=== PATIENT | female | born 1955 | race Caucasian/White ===

== ENCOUNTER → 2016-11-09 | Outpatient (CLI) | payer OTHER ==
[~2016-11-09] VITALS: Ht 157.5 cm; Wt 94.8 kg
[~2016-11-09] MED LIST: /CIPR75TA; /TAMS4CA; ACET30TAB PO; ACET50TA PO; ALLO300T; ATEN50TA2; AUGM875T27 PO; B-12500T2 PO; BABY81CH; BISO10TA PO; BISO10TA6 PO; CALC600T21 PO; CALCTAB52 PO; CALCTAB7 PO; CHILCHW PO; CHOLPOW39 PO; CIPR500T89 PO; GLUC1000; HUMUINJ; INSULANT; KEFL500C; LASI20TA; LEVO50TA5 PO; LIDOCAINE 2% INJ 100 MG/5 ML SDV (FOR ANES.) As Ordered ONE; MAGN400C2 PO; MAGN400T2 PO; METR500T10 PO; MULT1TAB10 PO; MYLI40DR PO; NS 1,000 ML IV ONE; OMEP40CA2 PO; PERC7.5T12 PO; PRED20TA PO; PROPOFOL 500 MG/50 ML VIAL As Ordered ONE; SIMV10TA2 PO; SLOWTAB PO; SYNT50TA; TYLE325T5 PO; VASO5TAB; VITA200038 PO; VITA500T3 PO; VITAMIN D50000 UNT; ZEBE5TAB; ZOCO10TA PO; [UNRECOGNIZED DRUG - OTHER] PO
--- NOTE | 2016-11-09 09:48 | ROOR ---
Patient Name: Flor Pascual Procedure Date: 11/09/2016 9:22 AM Date of : 1955 Age: 61 Room: [facility] Gender: Female Note Status: Finalized Procedure: Colonoscopy Indications: High risk colon cancer surveillance: Personal history of colonic polyps, Last colonoscopy: March 2013 Providers: Jabari VASQUEZ MD Referring MD: Raghavendra Pierce MD Requesting Provider: Medicines: Monitored Anesthesia Care Complications: No immediate complications. Procedure: Pre-Anesthesia Assessment: - The heart rate, respiratory rate, oxygen saturations, blood pressure, adequacy of pulmonary ventilation, and response to care were monitored throughout the procedure. The Colonoscope was introduced through the anus and advanced to the cecum, identified by appendiceal orifice and ileocecal valve. The colonoscopy was performed without difficulty. The patient tolerated the procedure well. The quality of the bowel preparation was good. Findings: The perianal and digital rectal examinations were normal. A diminutive polyp was found in the cecum. The polyp was sessile. The polyp was removed with a cold snare. Resection and retrieval were complete. Small Internal Hemorrhoids. The exam was otherwise without abnormality. (Exam: Complete, Prep: Good or Excellent.) Impression: - One diminutive polyp in the cecum, removed with a cold snare. Resected and retrieved. - Small Internal Hemorrhoids. - The colon examination was otherwise normal. Recommendation: - Repeat colonoscopy in 5 years for surveillance based on personal history of previous adenomatous polyps. Jabari Vasquez MD Jabari VASQUEZ MD 11/09/2016 9:48:01 AM This report has been signed electronically. Number of Addenda: 0 Note Initiated On: 11/09/2016 9:22 AM Estimated Blood Loss: Estimated blood loss: none.
[2016-11-09 10:10] VITALS: BP 124/76
== END | disposition home or self-care (01) ==
LOC: M OPP 08:28
PROVIDERS: ATTEND Internal Medicine Gastroenterology
DX: Z12.11 Encounter for screening for malignant neoplasm of colon (principal); D12.0 Benign neoplasm of cecum; K64.8 Other hemorrhoids; Z86.010 Personal history of colon polyps; I10 Essential (primary) hypertension; E78.5 Hyperlipidemia, unspecified; R12 Heartburn; Z78.0 Asymptomatic menopausal state; G47.30 Sleep apnea, unspecified; Z98.84 Bariatric surgery status; Z88.8 Allergy status to other drugs, medicaments and biological substances; Z88.2 Allergy status to sulfonamides; Z88.1 Allergy status to other antibiotic agents; Z79.899 Other long term (current) drug therapy; Z87.442 Personal history of urinary calculi

== ENCOUNTER 2016-11-12 09:40 | Emergency (ER) | payer OTHER ==
[~2016-11-12] VITALS: Ht 157.5 cm; Wt 90.7 kg
[2016-11-12 09:40] VITALS: BP 177/96
[~2016-11-12 09:40] MED LIST changes: -ACET30TAB PO; -AUGM875T27 PO; -BISO10TA PO; -LIDOCAINE 2% INJ 100 MG/5 ML SDV (FOR ANES.) As Ordered ONE; -MAGN400C2 PO; -NS 1,000 ML IV ONE; -PRED20TA PO; -PROPOFOL 500 MG/50 ML VIAL As Ordered ONE
[2016-11-12] MEDS ORDERED: BISO10TA PO (09:51)
[2016-11-12] MEDS ORDERED: MAGN400C2 PO (09:51)
[2016-11-12] MEDS ORDERED: AUGM875T27 PO (10:31)
[2016-11-12] MEDS ORDERED: PRED20TA PO (10:31)
[2016-11-12] MEDS ORDERED: ACET30TAB PO (10:31)
== END 2016-11-12 10:44 | disposition home or self-care (01) ==
LOC: M ED 10:24
DX: J01.90 Acute sinusitis, unspecified (principal); I10 Essential (primary) hypertension; E66.9 Obesity, unspecified; Z79.899 Other long term (current) drug therapy; Z88.2 Allergy status to sulfonamides; Z88.8 Allergy status to other drugs, medicaments and biological substances

== ENCOUNTER → 2017-01-01 | Outpatient (CLI) | payer OTHER ==
[~2017-01-01] MED LIST changes: +ACET30TAB PO; +AUGM875T28 PO; +BISO10TA PO; -CALC600T21 PO; +CALC600T60 PO; +MAGN400C2 PO; +PRED20TA PO
--- NOTE | 2017-01-01 11:55 | REPMRS ---
Patient History The patient states she had a clinical breast exam in 10/2016. Patient is postmenopausal. No known family history of cancer. Digital Woman Screen Mammo: January 01, 2017 - Exam #: [id number] Bilateral CC and MLO view(s) were taken. Technologist: Reba Garcia Technologist Prior study comparison: November 05, 2015, digital woman screen mammo performed at [facility]. September 15, 2014, digital woman screen mammo performed at [facility]. FINDINGS: There are scattered fibroglandular densities. There has been no change in the appearance of the mammogram from the prior studies. There is a mild amount of residual fibroglandular tissue which is fairly symmetric. There is no interval development of dominant mass, architectural distortion, or clustered microcalcification suggestive of malignancy. ASSESSMENT: BI-RADS/ACR category 1 mammogram. Negative. Recommendation Routine screening mammogram in 1 year (for women over age 40). This mammogram was interpreted with the aid of an FDA-approved computer-aided dectection system. Electronically Signed By: Murtaza Crowe MD 01/01/17 [id number]
== END ==
LOC: M WHC 10:10
PROVIDERS: ATTEND Family Medicine
DX: Z12.31 Encounter for screening mammogram for malignant neoplasm of breast (principal)

== ENCOUNTER → 2017-01-01 | Outpatient (CLI) | payer OTHER ==
--- NOTE | 2017-01-01 09:21 | REP ---
KUB, ONE VIEW: HISTORY: Kidney stone. COMPARISON: 01/03/2016. Calcifications are present overlying the kidneys consistent with nephrolithiasis. Calcifications are present in the pelvis consistent with phleboliths. The intestinal gas pattern is nonspecific. IMPRESSION: Bilateral nephrolithiasis. Signed by Juan Henriquez MD 01/01/2017 09:25 A
== END ==
LOC: M SMT 08:30
PROVIDERS: ATTEND Urology
DX: N20.0 Calculus of kidney (principal)

== ENCOUNTER → 2017-09-11 | Outpatient (REF) | payer OTHER | LOC: M SFHCWAGY 16:15 | DX: N93.9 Abnormal uterine and vaginal bleeding, unspecified (principal); Z12.72 Encounter for screening for malignant neoplasm of vagina ==

== ENCOUNTER → 2018-01-01 | Outpatient (CLI) | payer OTHER | LOC: M SMT 09:26 | DX: N20.0 Calculus of kidney (principal) | CPT/HCPCS: 74018 ==

== ENCOUNTER → 2018-01-02 | Outpatient (CLI) | payer OTHER | LOC: M WHC 10:46 | DX: Z12.31 Encounter for screening mammogram for malignant neoplasm of breast (principal); Z78.0 Asymptomatic menopausal state | CPT/HCPCS: 77067 ==

== ENCOUNTER → 2018-01-03 | Outpatient (REF) | payer OTHER ==
[2018-01-08 18:10] LABS: FERRITIN 7 NG/ML (8-252)
== END ==
LOC: M LAB REF 01-08 17:24
DX: Z98.84 Bariatric surgery status (principal)

== ENCOUNTER → 2019-01-01 | Outpatient (CLI) | payer OTHER ==
[~2019-01-01] MED LIST changes: -/TAMS4CA; +ACET-716 PO; -ACET30TAB PO; -ACET50TA PO; -BISO10TA PO; +BISO10TA13 PO; -BISO10TA6 PO; +BISO10TA7 PO; +FLOM0.4C39; +MAPA500T17 PO
[2019-01-01 17:42] LABS: APPEARANCE, URINE CLEAR (CLEAR); BACTERIA, URINE AUTO 1+ (NEGATIVE); BILIRUBIN, URINE AUTO NEGATIVE (NEGATIVE); BLOOD, URINE BLOOD NEGATIVE (NEGATIVE); COLOR, URINE YELLOW (YELLOW); GLUCOSE, URINE (UA) AUTO NEGATIVE (NEGATIVE); KETONE, URINE AUTO NEGATIVE (NEGATIVE); LEUKOCYTE ESTERASE, URINE AUTO 1+ (NEGATIVE); MUCUS, URINE SMALL (NEGATIVE); NITRITE, URINE AUTO NEGATIVE (NEGATIVE); PROTEIN, URINE AUTO NEGATIVE (NEGATIVE); RBC, URINE AUTO 3 /HPF (0-3); SPECIFIC GRAVITY URINE AUTO 1.014 (1.002-1.035); SQUAMOUS EPITHELIAL CELL UR AU 0 /HPF (0-6); UROBILINOGEN, URINE AUTO 0.2 mg/dL (0.0-2.0); WBC, URINE AUTO 60 /HPF (0-3)
--- NOTE | 2019-01-01 21:54 | REP ---
Clinical: Kidney stone. Comparison: 01/01/2018. Findings: Single supine view of the abdomen and pelvis demonstrates stable degenerative changes to the skeletal structures and innumerable calcifications in the pelvis likely representing phleboliths. Bilateral intrarenal calculi are again noted and essentially unchanged. Conglomerate of stones in the lower pole right kidney and up to approximately 18 mm and conglomerate of stones in the lower pole left kidney up to approximately 15 mm. Impression: Bilateral nephrolithiasis. Electronically Signed by Miguel Malagon MD 01/01/2019 09:46 P
== END ==
LOC: M SMT 14:34
PROVIDERS: ATTEND Nurse Practitioner Family
DX: N20.0 Calculus of kidney (principal); R39.15 Urgency of urination

== ENCOUNTER → 2019-01-23 | Outpatient (CLI) | payer OTHER ==
--- NOTE | 2019-01-23 09:29 | REP ---
BILATERAL SCREENING DIGITAL MAMMOGRAM WITH 3D TOMOSYNTHESIS: There are no palpable abnormalities or other breast complaints. The the patient states she had a clinical breast examination November. The the patient states she performs self-breast examinations two times per year. The Tyrer-Cuzick Score is: 5.3% . Comparisons are 11/05/2015, 01/01/2017 and 01/02/2018. There are scattered areas of fibroglandular density. There is no dominant mass, micro calcific cluster or architectural distortion that would indicate malignancy. There are no additional findings on 3D tomosynthesiss. There is no change from the prior study. Impression: BIRADS/ACR category 1 mammogram. Negative. Recommendation: Routine annual screening mammography. This mammogram was interpreted with the aid of a FDA approved computer-aided detection system. A. Negative mammogram reports should not delay biopsy if a dominant or clinically suspicious mass is present. B. Not all breast cancers are identified by mammography or tomosynthesis. C. Adenosis and dense breasts may obscure an underlying neoplasm. Patient letter M1. Electronically Signed by Murtaza Doll MD 01/23/2019 09:21 A
== END ==
LOC: M WHC 08:02
PROVIDERS: ATTEND Family Medicine
DX: Z12.31 Encounter for screening mammogram for malignant neoplasm of breast (principal)

== ENCOUNTER → 2019-04-03 | Outpatient (REF) | payer OTHER ==
[~2019-04-03] MED LIST changes: +BISO10TA10 PO; -BISO10TA7 PO
[2019-04-03 13:40] LABS: BASO % 0.8 % (0.0-1.0); EOS # 0.2 10^3/uL (0.0-0.5); EOS % 4.1 % (0.0-3.0); HEMATOCRIT 42.2 % (36.0-47.0); LYMPH # 0.9 10^3/uL (1.5-5.0); LYMPH % 18.1 % (24.0-44.0); MEAN CORPUSCULAR HEMOGLOBIN 29.5 pg (27.0-33.0); MEAN CORPUSCULAR HGB CONC 33.2 g/dl (32.0-36.5); MEAN CORPUSCULAR VOLUME 88.8 fl (80.0-96.0); MONO # 0.6 10^3/uL (0.0-0.8); NEUTROPHILS # 3.4 10^3/uL (1.5-8.5); NEUTROPHILS % 65.2 % (36.0-66.0); PLATELET COUNT, AUTOMATED 205 10^3/uL (150-450); RED BLOOD COUNT 4.75 10^6/uL (4.00-5.40); WHITE BLOOD COUNT 5.2 10^3/uL (4.0-10.0)
[2019-04-07 10:46] LABS: D001-IgE D pteronyssinus <0.10 kU/L (Class 0); E001-IgE Cat Epith/Dander < 0.10 kU/L (Class 0); E005-IgE Dog Dander < 0.10 kU/L (Class 0); G002-IgE Bermuda Grass < 0.10 kU/L (Class 0); G008-IgE Kentucky Bluegrass < 0.10 kU/L (Class 0); M001-IgE Penicillium chrysogen < 0.10 kU/L (Class 0); M002 IgE Cladosporium herbaru < 0.10 kU/L (Class 0); M003 IgE Aspergillus fumigatu < 0.10 kU/L (Class 0); M006-IgE Alternaria alternata < 0.10 kU/L (Class 0); T001-IgE Maple/Box Elder < 0.10 kU/L (Class 0); T003-IgE Common Silver Birch < 0.10 kU/L (Class 0); T006-IgE Cedar, Mountain < 0.10 kU/L (Class 0); T007-IgE Oak, White < 0.10 kU/L (Class 0); T008-IgE Elm, American < 0.10 kU/L (Class 0); T015-IgE Ash, White < 0.10 kU/L (Class 0); T041-IgE Hickory, White < 0.10 kU/L (Class 0); T070-IgE White Mulberry < 0.10 kU/L (Class 0); W001-IgE Ragweed, Short < 0.10 kU/L (Class 0); W009-IgE Plantain, English < 0.10 kU/L (Class 0); W014-IgE Pigweed, Rough < 0.10 kU/L (Class 0); W018-IgE Sheep Sorrel < 0.10 kU/L (Class 0)
== END ==
LOC: M LAB REF 13:06
PROVIDERS: ATTEND Internal Medicine Pulmonary Disease
DX: J45.40 Moderate persistent asthma, uncomplicated (principal)

== ENCOUNTER → 2019-04-10 | Outpatient (CLI) | payer OTHER ==
[~2019-04-10] MED LIST changes: +OMEP40CA97 PO
--- NOTE | 2019-04-10 10:27 | REP ---
Two-view chest: 04/10/2019. Indication: Dyspnea. Comparison: 12/11/2014. Findings: Compared to the previous study, the findings are stable. Scarring of the lower lobes is redemonstrated. Cardiomegaly persists. No new pulmonary infiltrates are present. There is no pleural effusion or pneumothorax. Impression: No acute cardiopulmonary process. Stable examination compared to 2014. Bibasilar scarring and cardiomegaly. Electronically Signed by Ronal Cheung DO 04/10/2019 10:18 A
== END ==
LOC: M SMT 08:56
PROVIDERS: ATTEND Internal Medicine Pulmonary Disease
DX: J45.40 Moderate persistent asthma, uncomplicated (principal)

== ENCOUNTER → 2019-04-22 | Outpatient (CLI) | payer OTHER ==
--- NOTE | 2019-04-22 08:15 | PFTRPT ---
Height: 62.00 Inches Weight: 225.00 Lbs BSA: 2.01 Diagnosis: J45.40 DATE OF PROCEDURE: 04/22/2019 ORDERED BY: Anju Bazzi MD Spirometry: Pre and post bronchodilator study of excellent technical quality. Forced vital capacity reduced. FEV1 in proportion. Obstructive index is, therefore, normal. Flow Volume Loop: Expiratory limb of the flow volume loop does suggest a restrictive impairment. No significant bronchodilator response identified. Lung Volumes: Total lung capacity is reduced. Residual volume is in proportion. Diffusing Capacity: Diffusing capacity is reduced but is appropriate for alveolar volume. Hemoglobin: Hemoglobin acceptable at 12.7. Airway Mechanics: Airway resistance mildly elevated with concomitant decrease in airway conductance. IMPRESSION: Suspect predominantly a mild restrictive ventilatory defect. Please correlate clinically. MTDD
== END ==
LOC: M CARPUL 07:23
PROVIDERS: ATTEND Internal Medicine Pulmonary Disease
DX: J45.40 Moderate persistent asthma, uncomplicated (principal)

== ENCOUNTER → 2019-04-29 | Outpatient (CLI) | payer OTHER ==
[~2019-04-29] MED LIST changes: +METHACHOLINE KIT (J7674) INH ONE
--- NOTE | 2019-04-29 10:48 | PFTRPT ---
Height: 62.00 Inches Weight: 225.00 Lbs BSA: 2.01 Diagnosis: J45.40 DATE OF PROCEDURE: 04/29/2019 ORDERED BY: Dr. Anju Bazzi INTERPRETATION: Study of excellent technical quality. Under protocol, methacholine was administered. At the maximal dose of 25 mg or 188.875 CDUs, a 24% decline in the FEV1 was noted. PC of 13.17 does not meet criteria for a positive study. IMPRESSION: Nondiagnostic study. Please correlate clinically. MTDD
== END ==
LOC: M CARPUL 09:32
PROVIDERS: ATTEND Internal Medicine Pulmonary Disease
DX: J45.40 Moderate persistent asthma, uncomplicated (principal)

== ENCOUNTER → 2019-05-16 | Outpatient (CLI) | payer OTHER ==
[~2019-05-16] MED LIST changes: -METHACHOLINE KIT (J7674) INH ONE
--- NOTE | 2019-05-16 17:55 | REP ---
CT chest without contrast: High-resolution study. 1 mm slices. History: Other nonspecific abnormal finding of the lung field. Atelectasis. Possible fibrosis and interstitial lung disease. Shortness of breath. Comparison chest x-ray April 10, 2019. CT findings: There are linear band-like areas of fibrosis and atelectasis bilaterally and fairly extensively in the lower lobes as well as in the left upper lobe and in the right middle lobe. This corresponds with plain radiographic findings of fibro atelectatic change. There are old healed rib fractures on the left and on the right laterally and posterolaterally. There is the there is extensive vascular calcification. There is some focal pericardial calcification. No pericardial effusion is seen. No pleural effusion is seen. No hilar or mediastinal mass or adenopathy is observed. No adrenal lesion is seen. There is a small cyst in the upper pole of the left kidney suspected. Postcholecystectomy clips are visible. There is no evidence of diffuse interstitial lung disease. No endobronchial lesion is seen. There are some air bronchograms in the atelectatic segment in the right lower lobe. These airways appear mildly dilated. Impression: There are coarse areas of fairly extensive fibro atelectatic changes in the lungs bilaterally. There is no evidence of diffuse interstitial lung disease. Cardiomegaly is seen. Some focal pericardial calcification is seen. Electronically Signed by Santosh Duron MD 05/17/2019 12:34 P
== END ==
LOC: M RAD 13:00
PROVIDERS: ATTEND Internal Medicine Pulmonary Disease
DX: R91.8 Other nonspecific abnormal finding of lung field (principal); J98.11 Atelectasis

== ENCOUNTER → 2019-06-30 | Outpatient (CLI) | payer OTHER ==
[~2019-06-30] MED LIST changes: -SIMV10TA2 PO; +SIMV10TA21 PO
[2019-06-30 12:38] LABS: RHEUMATOID FACTOR QUANT < 10.0 IU/ML (<15.0)
[2019-06-30 12:55] LABS: IMMUNOGLOBULIN G 630 MG/DL (681-1648); IMMUNOGLOBULIN M 19.3 MG/DL (40-230)
[2019-07-03 00:06] LABS: ANCA-ATYPICAL <1:20 titer (Neg:<1:20); ANTI SCLERODERMA ANTIBODIES <0.2 AI (0.0-0.9); ANTINUCLEAR ANTIBODIES DIRECT Negative (Negative); CYCLIC CITRULLINATED PEPTIDE 9 units (0-19); CYTOPLASMIC NEUTROP AB ANCA-C <1:20 titer (Neg:<1:20); PERINUCLEAR AB ANCA-P <1:20 titer (Neg:<1:20); SJOGREN'S ANTI SS-A <0.2 AI (0.0-0.9); SJOGREN'S ANTI SS-B <0.2 AI (0.0-0.9)
== END ==
LOC: M PLALAB 09:45
PROVIDERS: ATTEND Internal Medicine Cardiovascular Disease
DX: R06.00 Dyspnea, unspecified (principal); J45.40 Moderate persistent asthma, uncomplicated

== ENCOUNTER → 2019-12-24 | Outpatient (REF) | payer OTHER ==
[~2019-12-24] MED LIST changes: -BISO10TA10 PO; +BISO10TA14 PO; +BISO5TAB14 PO; +CEFU50TA PO; +CETI10CA2 PO; +DOXY-350 PO; +LASI20TA3 PO; +MONT10TA4 PO; +MULTTAB61 PO; +NITR100C2 PO; +SING10TA32 PO; +SLOWTAB2 PO; +TREL1AER PO; +VITA500T40 PO; +ZYRTTAB8 PO
== END ==
LOC: M LAB REF 12:28
PROVIDERS: ATTEND Nurse Practitioner Family
DX: R30.0 Dysuria (principal)

== ENCOUNTER → 2019-12-31 | Outpatient (REF) | payer OTHER ==
[2019-12-31 18:15] LABS: APPEARANCE, URINE CLOUDY (CLEAR); BACTERIA, URINE AUTO 1+ (NEGATIVE); BILIRUBIN, URINE AUTO NEGATIVE (NEGATIVE); BLOOD, URINE BLOOD 1+ (NEGATIVE); COLOR, URINE AMBER (YELLOW); GLUCOSE, URINE (UA) AUTO NEGATIVE (NEGATIVE); KETONE, URINE AUTO NEGATIVE (NEGATIVE); LEUKOCYTE ESTERASE, URINE AUTO 3+ (NEGATIVE); MUCUS, URINE SMALL (NEGATIVE); NITRITE, URINE AUTO NEGATIVE (NEGATIVE); PROTEIN, URINE AUTO 1+ mg/dL (NEGATIVE); RBC, URINE AUTO 13 /HPF (0-3); SPECIFIC GRAVITY URINE AUTO 1.017 (1.002-1.035); SQUAMOUS EPITHELIAL CELL UR AU 1 /HPF (0-6); UROBILINOGEN, URINE AUTO 0.2 mg/dL (0.0-2.0); WBC, URINE AUTO TNTC /HPF (0-3)
== END ==
LOC: M SMT 17:08
PROVIDERS: ATTEND Nurse Practitioner Family
DX: N39.0 Urinary tract infection, site not specified (principal)

== ENCOUNTER 2020-01-02 16:27 | Emergency (ER) | payer OTHER ==
[~2020-01-02] VITALS: Ht 157.5 cm; Wt 98.9 kg
[~2020-01-02 16:27] MED LIST changes: -BISO5TAB14 PO; -CEFU50TA PO; -CETI10CA2 PO; -DOXY-350 PO; -LASI20TA3 PO; -MONT10TA4 PO; -MULTTAB61 PO; -NITR100C2 PO; -SING10TA32 PO; -SLOWTAB2 PO; -TREL1AER PO; -VITA500T40 PO; -ZYRTTAB8 PO
[2020-01-02 17:28] LABS: BASO % 0.2 % (0.0-1.0); EOS # 0.1 10^3/uL (0.0-0.5); EOS % 1.4 % (0.0-3.0); HEMATOCRIT 44.6 % (36.0-47.0); HEMOGLOBIN 14.5 g/dl (12.0-15.5); LYMPH # 0.2 10^3/uL (1.5-5.0); MEAN CORPUSCULAR HEMOGLOBIN 28.6 pg (27.0-33.0); MEAN CORPUSCULAR HGB CONC 32.5 g/dl (32.0-36.5); MONO # 0.2 10^3/uL (0.0-0.8); MONO % 2.3 % (0.0-5.0); NEUTROPHILS # 8.2 10^3/uL (1.5-8.5); NEUTROPHILS % 93.6 % (36.0-66.0); PLATELET COUNT, AUTOMATED 207 10^3/uL (150-450); RED BLOOD COUNT 5.07 10^6/uL (4.00-5.40); WHITE BLOOD COUNT 8.7 10^3/uL (4.0-10.0)
[2020-01-02 17:55] LABS: BILIRUBIN,DIRECT 0.1 MG/DL (0.0-0.2); BILIRUBIN,TOTAL 0.4 MG/DL (0.2-1.0); CALCIUM LEVEL 9.3 MG/DL (8.8-10.2); CREATININE FOR GFR 1.1 MG/DL (0.55-1.30); GLOMERULAR FILTRATION RATE 53.2 (>45); POTASSIUM SERUM 3.8 MEQ/L (3.5-5.1); TOTAL PROTEIN 7.1 GM/DL (6.4-8.2)
[2020-01-02] MEDS ORDERED: IPRATROPIUM 0.5MG/ALBUTEROL 2.5MG INH SOL UD 3ML (DUONEB) NEB ONE (18:00)
[2020-01-02 19:45] VITALS: BP 111/61
--- NOTE | 2020-01-02 21:40 | ECGEPIP ---
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
--- NOTE | 2020-01-03 15:25 | REP ---
AP PORTABLE CHEST: 01/02/2020 COMPARISON: 04/10/2019 CLINICAL HISTORY: Dyspnea, cough. FINDINGS: The lung raza are adequately inflated. There are linear densities in both bases seen previously but superimposed there are patchy infiltrates or atelectasis bilaterally. Some blunting of the CP angles suggesting small effusions may be present. There is left atrial enlargement, and the heart has left ventricular configuration. Some venous hypertension seen without miri edema. Mid and upper lung zones without consolidation. The aorta is mildly tortuous, unchanged. IMPRESSION: 1. Some mild cardiomegaly with left atrial and ventricular enlargement and some venous hypertension. Small effusion suggested. 2. Some underlying fibrosis and linear fibroatelectatic change similar to previous studies but superimposed patchy bibasilar infiltrates or atelectasis. Pneumonia is not excluded. Electronically Signed by Harjinder Wood MD 01/03/2020 06:28 P
== END 2020-01-02 19:58 | disposition home or self-care (01) ==
LOC: M ED 16:27
DX: J45.901 Unspecified asthma with (acute) exacerbation (principal); E11.9 Type 2 diabetes mellitus without complications; I10 Essential (primary) hypertension; E07.9 Disorder of thyroid, unspecified; Z98.84 Bariatric surgery status; Z79.899 Other long term (current) drug therapy; Z88.2 Allergy status to sulfonamides; Z88.1 Allergy status to other antibiotic agents; Z88.8 Allergy status to other drugs, medicaments and biological substances

== ENCOUNTER 2020-01-04 09:25 | Inpatient (IN) | payer OTHER ==
[~2020-01-04] VITALS: Ht 157.5 cm; Wt 99.3 kg
[2020-01-04] MEDS ORDERED: NITR100C2 PO (09:31)
[2020-01-04] MEDS ORDERED: methylPREDNISolone 125MG 2ML VIAL IV ONE (10:00)
[2020-01-04] MEDS: COMBIVENT RESPIMAT 100-20MCG INHALER 4GM INH SCH ×3 (10:04→11:13)
[2020-01-04 11:02] LABS: BASO % 0.3 % (0.0-1.0); EOS # 0.1 10^3/uL (0.0-0.5); EOS % 1.1 % (0.0-3.0); HEMATOCRIT 38.5 % (36.0-47.0); HEMOGLOBIN 12.7 g/dl (12.0-15.5); LYMPH # 0.3 10^3/uL (1.5-5.0); LYMPH % 2.9 % (24.0-44.0); MEAN CORPUSCULAR HEMOGLOBIN 28.9 pg (27.0-33.0); MEAN CORPUSCULAR VOLUME 87.7 fl (80.0-96.0); MONO # 0.5 10^3/uL (0.0-0.8); MONO % 4.6 % (0.0-5.0); NEUTROPHILS # 9.9 10^3/uL (1.5-8.5); NEUTROPHILS % 90.5 % (36.0-66.0); PLATELET COUNT, AUTOMATED 186 10^3/uL (150-450); RED BLOOD COUNT 4.39 10^6/uL (4.00-5.40); WHITE BLOOD COUNT 10.9 10^3/uL (4.0-10.0)
[2020-01-04] MEDS ORDERED: cefTRIAXone SOD 2 GM in D5W MINI-BAG PLUS 50 ML IV ONE (11:15)
[2020-01-04] MEDS ORDERED: NS 1,000 ML IV ONE ×3 (11:15→12:00)
[2020-01-04] MEDS ORDERED: DOXYCYCLINE HYCLATE 100 MG in D5W MINI-BAG PLUS 100 ML IV ONE (11:15)
[2020-01-04] MEDS ORDERED: SING10TA32 PO (11:16)
[2020-01-04] MEDS ORDERED: TREL1AER PO (11:16)
[2020-01-04] MEDS ORDERED: ZYRTTAB8 PO (11:16)
[2020-01-04 11:34] LABS: ALBUMIN 3.5 GM/DL (3.2-5.2); BILIRUBIN,DIRECT 0.2 MG/DL (0.0-0.2); BILIRUBIN,TOTAL 0.6 MG/DL (0.2-1.0); THYROID STIMULATING HORMONE 1.27 uIU/ML (0.358-3.740); THYROXINE (T4) 14.6 UG/DL (4.5-12.0); TOTAL PROTEIN 6.7 GM/DL (6.4-8.2)
[2020-01-04] MEDS ORDERED: VITA500T40 PO (12:15)
[2020-01-04] MEDS ORDERED: MONT10TA4 PO (12:15)
[2020-01-04] MEDS ORDERED: VITA200038 PO (12:15)
[2020-01-04] MEDS ORDERED: MULTTAB61 PO (12:15)
[2020-01-04] MEDS ORDERED: CETI10CA2 PO (12:15)
[2020-01-04] MEDS ORDERED: SLOWTAB2 PO (12:19)
[2020-01-04] MEDS ORDERED: BISO5TAB14 PO (12:24)
[2020-01-04] MEDS: NS 1,000 ML IV SCH ×2 (13:30→22:29)
--- NOTE | 2020-01-04 14:48 | REP ---
AP PORTABLE CHEST: 01/04/2020. COMPARISON: 01/02/2020, 04/10/2019. CLINICAL HISTORY: Dyspnea and cough. FINDINGS: The bibasilar patchy infiltrates or atelectasis superimposed on known fibrosis seen in 2019 now demonstrate increase in those opacities and consolidations. Small effusions are difficult to exclude. Heart size mildly prominent. Left atrial and ventricular enlargement seen and venous hypertension shows further engorgement. I do not see miri edema. Degenerative changes in the spine and a mildly tortuous aorta, stable. IMPRESSION: 1. Increasing bibasilar atelectasis and/or infiltrates superimposed on known fibrosis since the 01/02/2020 prior. 2. Cardiomegaly with pulmonary venous hypertension also increased but still no interstitial pulmonary edema. Electronically Signed by Harjinder Wood MD 01/04/2020 07:04 P
[2020-01-04 14:59] VITALS: BP 143/99
[2020-01-04] MEDS: IPRATROPIUM 0.5MG/ALBUTEROL 2.5MG INH SOL UD 3ML (DUONEB) INH SCH ×3 (17:40→23:09)
--- NOTE | 2020-01-04 18:42 | HPEPDOC ---
General Date of Admission Jan 04, 2020 at 12:57 Date of Service: Jan 04, 2020 Attending Physician: CHIARA ORTEGA MD Chief Complaint The patient is a 64-year-old female admitted with a reason for visit of Pneumonia. Source: Patient, Old records Exam Limitations: No limitations Timing/Duration: Week(s) Severity: Moderate Associated Symptoms: Cough, Fever, Chills, Loss of appetite, Shortness of breath, Other (runny nose) History of Present Illness 64-year-old female with history of asthma and reports onset of fever, cough and runny nose over the past week. She attributed some of it to the recent humidity and heat. She returned today with significant malaise; she is found to have bilateral basilar pneumonia. She has ruled out for COVID-19 by rapid testing. She has had shortness of breath and wheezing. She has been unresponsive to inhalers. She denies any known exposures to anyone who has been ill. She states she has generally been at home due to the pandemic. She has had difficulty with urinary tract infection; urine cultures obtained on December 23 and December 30 are both positive for Escherichia coli. She has been on extended treatment course with Macrodantin. Home Medications Scheduled Bisoprolol Fumarate (Bisoprolol Fumarate) 5 Mg Tablet, 5 MG PO DAILY, (Reported) Calcium Carbonate (Calcium) 600 Mg Tab, 1,200 MG PO DAILY, (Reported) Cetirizine HCl (ZyrTEC) 10 Mg Capsule, 10 MG PO DAILY, (Reported) Cholecalciferol (Vitamin D3) (Vitamin D3) 50 Mcg Tablet, 50 MCG PO DAILY, (Reported) Cyanocobalamin (Vitamin B-12) (Vitamin B-12) 500 Mcg Tablet, 500 MCG PO DAILY, (Reported) Fluticasone/Umeclidin/Vilanter (Trelegy Ellipta 100-62.5-25) 1 Each Blst.w.dev, 1 PUFF PO DAILY, (Reported) Levothyroxine Sodium (Levothyroxine Sodium) 50 Mcg Tab, 50 MCG PO DAILY, (Reported) Magnesium Chloride (Slow-Mag) 71.5 Mg Tablet.dr, 71.5 MG PO DAILY, (Reported) @ NOON Magnesium Oxide (Magnesium) 400 Mg Cap, 800 MG PO BID, (Reported) Montelukast Sodium (Singulair) 10 Mg Tablet, 10 MG PO DAILY, (Reported) Montelukast Sodium (Montelukast Sodium) 10 Mg Tablet, 10 MG PO QHS, (Reported) Multivitamin (Multivitamins) 1 Each Tablet, 2 TAB PO DAILY, (Reported) Nitrofurantoin Monohyd/M-Cryst (Nitrofurantoin Edmunds-Mcr 100 mg) 100 Mg Capsule, 100 MG PO BID, (Reported) Simvastatin (Simvastatin) 10 Mg Tab, 10 MG PO DAILY, (Reported) Allergies Coded Allergies: Sulfa (Sulfonamide Antibiotics) (Verified Allergy, Intermediate, RASH, 04/25/19) streptomycin (Verified Allergy, Intermediate, RASH, 04/25/19) hydrochlorothiazide (Verified Allergy, Unknown, HYPOTENSION, ELEVATED TEMP, 04/25/19) Past Medical History Medical History Past medical history includes nephrolithiasis, btd-wakdqrb-anluqrwlm diabetes mellitus, for which she is not on medication, essential hypertension, hypothyroidism, obstructive sleep apnea for which she makes use of CPAP, psoriasis, recent urinary tract infection with Escherichia coli, history of pneumonia in August 2019. Surgical History Past surgical history includes , cholecystectomy, bilateral carpal tunnel release, hysterectomy, gastric bypass surgery Procedures include ureteral stents and lithotripsy. 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 Physical Examination General Exam: Positive: Alert, No Acute Distress Eye Exam: Positive: PERRLA, Conjunctiva & lids normal, EOMI ENT Exam: Positive: Atraumatic, Mucous membr. moist/pink Neck Exam: Positive: Supple; Negative: JVD, thyromegaly, +2 carotid pulse wo bruit, Lymphadenopathy, Other Chest Exam: Positive: Normal air movement, Other (occasional coarse breath sounds, occasional dry cough) Heart Exam: Positive: Tachycardic, Normal S1, Normal S2 Abdomen Exam: Positive: Normal bowel sounds, Soft, Other (moderate central obesity with body mass index of 40) Extremity Exam: Positive: Normal pulses, Other (mild nontender, joint changes); Negative: Clubbing, Cyanosis, Edema, Tenderness, Swelling Skin Exam: Positive: Nl turgor and temperature, Other skin issue (does have psoriatic lesions to the dorsum and ankles of her feet) Neuro Exam: Positive: Normal Speech, Strength at 5/5 X4 ext, Normal Tone, Sensation Intact, Cranial Nerves 3-12 NL, Reflexes 2+ Psych Exam: Positive: Mood NL, Memory Intact, Oriented x 3 Vital Signs Vital Signs Date Time Temp Pulse Resp B/P (MAP) Pulse Ox O2 Delivery O2 Flow Rate FiO2 01/04/20 14:59 99.0 107 17 143/99 (114) 95 Room Air 01/04/20 13:15 2.0 Laboratory Data Labs 24H Laboratory Tests 2 01/04/20 10:24: POC pH (Misc Panel) 7.444, POC Base Excess (Misc Panel) -2.0, POC Saturated Percent O2 (Misc) 93L, POC pO2 (Misc Panel) 65.0L, POC pCO2 (Misc Panel) 32.7L, POC HCO3 (Misc Panel) 22.4, POC Total CO2 (Misc Panel) 23.0 01/04/20 10:41: POC Total CO2 (Misc Panel) 23.0, POC Glucose (Misc Panel) 143H, POC Sodium (Misc Panel) 142, POC Potassium (Misc Panel) 3.9, POC Chloride (Misc Panel) 106, POC Blood Urea Nitrogen (Misc Panel 21, POC Ionized Calcium (Misc Panel) 4.6, POC Creatinine (Misc Panel) 0.7, POC Hematocrit (Misc Panel) 40.0 01/04/20 10:43: POC Troponin I (Misc) 0.00 01/04/20 10:44: Immature Granulocyte % (Auto) 0.6, Neutrophils (%) (Auto) 90.5H, Lymphocytes (%) (Auto) 2.9L, Monocytes (%) (Auto) 4.6, Eosinophils (%) (Auto) 1.1, Basophils (%) (Auto) 0.3, Neutrophils # (Auto) 9.9H, Lymphocytes # (Auto) 0.3L, Monocytes # (Auto) 0.5, Eosinophils # (Auto) 0.1, Basophils # (Auto) 0.0, Nucleated Red Blood Cells % (auto) 0.0, Total Bilirubin 0.6, Direct Bilirubin 0.2, Aspartate Amino Transf (AST/SGOT) 27, Alanine Aminotransferase (ALT/SGPT) 32, Alkaline Phosphatase 68, LX-Qbg-F-Type Natriuretic Peptide 397H, Total Protein 6.7, Albumin 3.5, Albumin/Globulin Ratio 1.1L, Thyroid Stimulating Hormone (TSH) 1.270, Thyroxine (T4) 14.6H 01/04/20 11:01: POC Lactate (Misc Panel) 2.32*H 01/04/20 16:22: 01/04/20 16:30: Bedside Glucose (Misc Panel) 310H 01/04/20 17:22: Urine Color YELLOW, Urine Appearance CLEAR, Urine pH 6.0, Urine Specific [place] 1.011, Urine Protein NEGATIVE, Urine Glucose (UA) 3+H, Urine Ketones NEGATIVE, Urine Blood NEGATIVE, Urine Nitrite NEGATIVE, Urine Bilirubin NEGATIVE, Urine Urobilinogen 0.2, Urine Leukocyte Esterase TRACEH, Urine WBC (Auto) 4H, Urine RBC (Auto) 2, Urine Hyaline Casts (Auto) 0, Urine Bacteria (Auto) NEGATIVE, Urine Squamous Epithelial Cells 0, Urine Mucus (Auto) SMALL, Urine Sperm (Auto) CBC/BMP Laboratory Tests 01/04/20 10:44 Microbiology Microbiology 01/04/20 Urine Culture, Received Pending 01/04/20 Respiratory Virus Panel (PCR) (DOMENICA) - Final, Complete 01/04/20 Blood Culture, Received Pending RAD Interpretation STUDY: CXR (IMPRESSION:) Assessment/Plan 1. Community-acquired pneumonia--patient has already received initial dosing of ceftriaxone and doxycycline. She is also received bolus dose of prednisone. Blood cultures have been obtained. She will also receive respiratory treatments and supplemental oxygen. Patient did exhibit tachycardia, but no fever or hypotension. Lactic acid was mildly elevated. We'll give IV hydration and recheck/follow. 2. Urinary tract infection--recent organism isolated is Escherichia coli. She has been on protracted course of Macrodantin. We'll recheck urine and if Esche richia coli still present, will adjust therapy. 3. Per-bdvtjwf-ohclosfsd diabetes mellitus--patient states this is essentially resolved since her gastric bypass surgery. We will monitor blood sugars for the next 24 hours. 4. Obstructive sleep apnea--patient can use her home CPAP device if available. Plan / VTE VTE Prophylaxis Ordered?: Yes (Lovenox) Plan IVF: Initiate Diet: Continue Current Activity: Continue Current Medications: Start Antibiotics, Start Steroids Respiratory: Wean Oxygen (where possible) Diagnostics: Repeat Labs in AM, Obtain Cultures Anticipated Discharge: Home CHIARA ORTEGA MD Jan 04, 2020 18:42
--- NOTE | 2020-01-04 19:12 | ECGEPIP ---
[facility] - ED Test Date: 2020-01-04 Pat Name: CHANO GIBSON Department: Room: - Gender: Female [employer]ary: TREVOR : 1955 Requested By: Philippe Nguyen Order Number: [id number] Reading MD: Philippe Nguyen Measurements Intervals [place] Rate: 124 P: 23 [place]: 164 QRS: 16 QRSD: 83 T: 20 QT: 411 QTc: 592 Interpretive Statements SINUS TACHYCARDIA LOW QRS VOLTAGE IN PRECORDIAL LEADS NONSPECIFIC T-WAVE ABNORMALITY ABNORMAL RHYTHM ECG POSSIBLE ANTERIOR WALL MYOCARDIAL INFARCTION - AGE INDETERMINATE PROLONGED QTC CW 01/02/[address] T WAVE CHANGES Electronically Signed on 01-04-2020 19:12:14 EDT by Philippe Nguyen
[2020-01-04] MEDS ORDERED: GLUCAGON INJ 1MG VIAL SC PRN (19:15)
[2020-01-04] MEDS ORDERED: DEXTROSE 50% 50 ML SYRINGE IV PRN (19:15)
[2020-01-04] MEDS ORDERED: GLUCOSE 4GM CHEW TABLET PO PRN (19:15)
[2020-01-04 20:44] LABS: HEMOGLOBIN A1c 6.9 %
[2020-01-04] MEDS: HumaLOG INSULIN (NovoLOG) PER UNIT SC SCH (21:25)
[2020-01-04] MEDS: ACETAMINOPHEN TAB 650MG DOSE (2X325MG) PO PRN (21:26)
[2020-01-04] MEDS: ENOXAPARIN 40MG/0.4ML SYRINGE (J1650 PER 10MG) SC SCH (21:26)
[2020-01-04] MEDS: BENZONATATE 100 MG CAP PO PRN (21:26)
[2020-01-04 22:00] VITALS: BP 112/69
[2020-01-04] MEDS: DOXYCYCLINE HYCLATE 100 MG in D5W MINI-BAG PLUS 100 ML IV SCH (23:36)
[2020-01-04] MEDS: methylPREDNISolone 40MG 1ML VIAL IV SCH (23:36)
[2020-01-05] MEDS: IPRATROPIUM 0.5MG/ALBUTEROL 2.5MG INH SOL UD 3ML (DUONEB) INH SCH ×6 (03:43→23:18)
[2020-01-05 06:00] VITALS: BP 141/71
[2020-01-05] MEDS: LEVOTHYROXINE 50MCG TABLET (0.05MG) PO SCH (06:00)
[2020-01-05 06:35] LABS: HEMATOCRIT 35.3 % (36.0-47.0); HEMOGLOBIN 11.6 g/dl (12.0-15.5); MEAN CORPUSCULAR HGB CONC 32.9 g/dl (32.0-36.5); MEAN CORPUSCULAR VOLUME 88.3 fl (80.0-96.0); PLATELET COUNT, AUTOMATED 180 10^3/uL (150-450); WHITE BLOOD COUNT 4.4 10^3/uL (4.0-10.0)
[2020-01-05 07:12] LABS: BLOOD UREA NITROGEN 17 MG/DL (7-18); CALCIUM LEVEL 8.5 MG/DL (8.8-10.2); CARBON DIOXIDE LEVEL 25 MEQ/L (21-32); CHLORIDE LEVEL 109 MEQ/L (98-107); CREATININE FOR GFR 0.69 MG/DL (0.55-1.30); GLOMERULAR FILTRATION RATE > 60.0 (>45); GLUCOSE, FASTING 262 MG/DL (70-100); SODIUM LEVEL 141 MEQ/L (136-145)
[2020-01-05] MEDS: HumaLOG INSULIN (NovoLOG) PER UNIT SC SCH ×4 (08:36→21:41)
[2020-01-05] MEDS: BENZONATATE 100 MG CAP PO PRN ×2 (08:39→21:41)
[2020-01-05] MEDS: ACETAMINOPHEN TAB 650MG DOSE (2X325MG) PO PRN ×2 (08:39→21:41)
[2020-01-05] MEDS: MAGNESIUM OXIDE 400 MG TAB (MAG-OX) PO SCH ×2 (09:00→21:40)
[2020-01-05] MEDS: CYANOCOBALAMIN 500 MCG TAB PO SCH (09:00)
[2020-01-05] MEDS: bisoproloL fumarate 5 MG TAB PO SCH (09:00)
[2020-01-05] MEDS: SIMVASTATIN 10 MG TAB PO SCH (09:00)
[2020-01-05] MEDS: MULTIVITAMINS/MINERALS THERAP 1 TAB PO SCH (09:00)
[2020-01-05] MEDS: NS 1,000 ML IV SCH ×2 (09:28→21:47)
[2020-01-05] MEDS: DOXYCYCLINE HYCLATE 100 MG in D5W MINI-BAG PLUS 100 ML IV SCH ×2 (11:34→23:41)
[2020-01-05] MEDS: methylPREDNISolone 40MG 1ML VIAL IV SCH ×2 (11:35→23:41)
[2020-01-05] MEDS: cefTRIAXone SOD 1 GM in D5W MINI-BAG PLUS 50 ML IV SCH (13:04)
[2020-01-05 14:00] VITALS: BP 143/77
[2020-01-05] MEDS: BUDESONIDE 0.25 MG/2 ML INHALATION SUSPENSION INH SCH ×2 (15:25→19:51)
[2020-01-05] MEDS: MONTELUKAST 10 MG TAB PO SCH (21:41)
[2020-01-05] MEDS: ENOXAPARIN 40MG/0.4ML SYRINGE (J1650 PER 10MG) SC SCH (21:42)
[2020-01-05 22:00] VITALS: BP 155/80
[2020-01-06] MEDS: IPRATROPIUM 0.5MG/ALBUTEROL 2.5MG INH SOL UD 3ML (DUONEB) INH SCH ×4 (03:23→20:08)
[2020-01-06] MEDS: LEVOTHYROXINE 50MCG TABLET (0.05MG) PO SCH (05:49)
[2020-01-06 06:00] VITALS: BP 152/84
[2020-01-06] MEDS: BUDESONIDE 0.25 MG/2 ML INHALATION SUSPENSION INH SCH ×2 (07:42→20:07)
[2020-01-06] MEDS: MULTIVITAMINS/MINERALS THERAP 1 TAB PO SCH ×2 (09:00→09:07)
[2020-01-06] MEDS ORDERED: MAGNESIUM CHLORIDE 64 MG TABCR (SLO MAG) PO SCH (09:00)
[2020-01-06] MEDS: HumaLOG INSULIN (NovoLOG) PER UNIT SC SCH ×4 (09:06→21:00)
[2020-01-06] MEDS: SIMVASTATIN 10 MG TAB PO SCH (09:07)
[2020-01-06] MEDS: bisoproloL fumarate 5 MG TAB PO SCH (09:07)
[2020-01-06] MEDS: CYANOCOBALAMIN 500 MCG TAB PO SCH (09:07)
[2020-01-06] MEDS: MAGNESIUM OXIDE 400 MG TAB (MAG-OX) PO SCH ×2 (09:07→21:05)
[2020-01-06] MEDS: NS 1,000 ML IV SCH (09:08)
[2020-01-06 11:30] VITALS: O2SAT 93
[2020-01-06] MEDS: DOXYCYCLINE HYCLATE 100 MG in D5W MINI-BAG PLUS 100 ML IV SCH ×2 (12:06→23:35)
[2020-01-06] MEDS: methylPREDNISolone 40MG 1ML VIAL IV SCH (12:06)
[2020-01-06] MEDS: cefTRIAXone SOD 1 GM in D5W MINI-BAG PLUS 50 ML IV SCH (12:49)
[2020-01-06] MEDS: ACETAMINOPHEN TAB 650MG DOSE (2X325MG) PO PRN ×2 (12:50→21:05)
[2020-01-06 14:00] VITALS: BP 139/66
--- NOTE | 2020-01-06 14:49 | IPNPDOC ---
Date Seen The patient was seen on 01/06/20. Progress Note SUBJECTIVE: Blood pressure systolic 150's mmHg, IV fluids stopped. She was 80% on room air on 01/05/2020; however, this morning at rest she was 93% on room air. PT/OT ordered and the patient is encouraged to continue to use her incentive spirometer. She denies increased shortness of breath from admission, chest pain, nausea, vomiting, fevers or chills. OBJECTIVE: VITAL SIGNS: Please see below PHYSICAL EXAMINATION: CONSTITUTIONAL: No acute distress, resting comfortably, AAO x 3 EYES: PERRLA, EOM intact, corrective lenses in place HENT, MOUTH: Normocephalic, atraumatic, moist mucous membranes NECK: SUPPLE, no JVD, no lymphadenopathy, no carotid bruit CV: Regular rate and rhythm, S1S2 normal, no murmurs/rubs/gallops RESPIRATORY: Clear to auscultation bilaterally, no rales/rhonchi/wheezes GI: BS positive in 4 quadrants, soft, nontender, nondistended, no rebound or guarding, no organomegaly : Deferred MUSCULOSKELETAL: Normal ROM. No cyanosis, clubbing, swelling, joint deformity, extremity edema INTEGUMENTARY: Intact, no rashes, no lesions, no erythema NEUROLOGIC: Cranial Nerves II-XII are intact, no focal deficits PSYCHIATRIC: Mood and affect are normal CURRENT MEDICATIONS: Please see below LABORATORY DATA: Please see below IMAGING: No new imaging ASSESSMENT: 64 y/o F with PMH of hypertension, hypothyroidism, diabetes mellitus, TERESA admitted for treatment of recurrent community acquired pneumonia. PLAN: 1. Community-acquired pneumonia -WBC wnl 01/05/20, afebrile overnight. SOB with activity. Hx of prior pneumonia in 08/2019 -Currently 93% on RA -C/w acapella, ceftriaxone and doxycycline (Day 2), duoneb ATC, albuterol PRN -Stopped methylprednisolone as there is currently no need to continue -F/u daily CBC, sputum cx. -Consider walking desaturation test 01/07/20 to evaluate need of O2 with ambulation 2. HTN. -BP 152/84, stopped IVFs. -C/w home BB 3. Hypothyroidism -C/w levothyroxine 4. DM type II -Likely uncontrolled due to steroids- stopped today -Blood sugar uncontrolled ranging 230-282 -Added levemir 8 U SC QAM, first dose today -C/w ISS, AC/HS blood sugar checks, consistent carb diet. 5. TERESA -Can use home CPAP 6. Asthma -Not currently in exacerbation -Stopped steroids. -C/w duoneb ATC, albuterol PRN, pulmicort BID 7. DVT px. -Enoxaparin DISPOSITION: Currently admitted under inpatient. Plan is discharge home when medically improved. PT/OT ordered today. VS, I&O, 24H, Fishbone Vital Signs/I&O Vital Signs Date Time Temp Pulse Resp B/P (MAP) Pulse Ox O2 Delivery O2 Flow Rate FiO2 01/06/20 11:30 93 Room Air 01/06/20 09:45 2.0 01/06/20 09:07 63 152/84 01/06/20 06:00 98.4 18 I&O- Last 24 Hours up to 6 AM 01/06/20 06:00 Intake Total 1730 ml Output Total 1150 ml Balance 580 ml Laboratory Data 24H LABS Laboratory Tests 2 01/05/20 16:31: Bedside Glucose (Misc Panel) 282H 01/05/20 21:04: Bedside Glucose (Misc Panel) 266H 01/06/20 05:50: Bedside Glucose (Misc Panel) 240H 01/06/20 11:50: Bedside Glucose (Misc Panel) 238H Microbiology Microbiology 01/04/20 Urine Culture - Final, Complete 01/04/20 Respiratory Virus Panel (PCR) (DOMENICA) - Final, Complete 01/04/20 Blood Culture - Preliminary, Resulted No Growth after 48 hours. All Specime... Current Medications Current Medications Medications (Trade) Dose Ordered Sig/Mary Route PRN Reason Start Time Stop Time Status Last Admin Dose Admin Acetaminophen (Tylenol Tab) 650 mg Q6HP PRN PO PAIN OR FEVER 01/04/20 13:00 01/06/20 12:50 Albuterol/ Ipratropium (Combivent Respimat 100-20mcg) 4 puff Q20M INH 01/04/20 10:00 01/04/20 10:41 DC 01/04/20 11:13 Albuterol/ Ipratropium (Duoneb (Ipr 0.5mg/Alb 2.5mg)) 3 ml RQ4H INH 01/04/20 16:00 01/06/20 11:42 Benzonatate (Tessalon Perles) 100 mg TIDP PRN PO COUGH 01/04/20 18:45 01/05/20 21:41 Bisoprolol Fumarate (Zebeta) 5 mg DAILY PO 01/05/20 09:00 01/06/20 09:07 Budesonide (Pulmicort) 0.25 mg RBID INH 01/05/20 08:00 01/06/20 07:42 Ceftriaxone Sodium 1 gm/ Dextrose 50 ml @ 100 mls/hr Q24H IV 01/05/20 13:00 01/06/20 12:49 Cyanocobalamin (Vitamin B12) 500 mcg DAILY PO 01/05/20 09:00 01/06/20 09:07 Dextrose (Dextrose 50%) 25 ml ASDIRECTED PRN IV SEE LABEL COMMENTS 01/04/20 19:15 Doxycycline Hyclate 100 mg/ Dextrose 100 ml @ 100 mls/hr Q12H IV 01/05/20 00:00 01/06/20 12:06 Enoxaparin Sodium (Lovenox) 40 mg DAILY@2100 SC 01/04/20 21:00 01/05/20 21:42 Glucagon (Glucagon) 1 mg ASDIRECTED PRN SC SEE LABEL COMMENTS 01/04/20 19:15 Glucose (Glucose) 16 GM ASDIRECTED PRN PO SEE LABEL COMMENTS 01/04/20 19:15 Home Med (Med Rec Complete!) ASDIRECTED XX 01/04/20 12:30 01/04/20 12:34 DC Insulin Human Lispro (HumaLOG INSULIN) See Protocol Table AC SC 01/05/20 07:30 01/06/20 12:50 Insulin Human Lispro (HumaLOG INSULIN) See Protocol Table QHS SC 01/04/20 21:00 01/05/20 21:41 Levothyroxine Sodium (Synthroid) 50 mcg DAILY@0600 PO 01/05/20 06:00 01/06/20 05:49 Magnesium Chloride (Slow-Mag) 71.5 mg DAILY PO 01/06/20 09:00 01/05/20 13:26 DC Magnesium Oxide (Mag-Ox) 800 mg BID PO 01/05/20 09:00 01/06/20 09:07 Methylprednisolone (SOLU medrol) 60 mg Q12H IV 01/04/20 23:00 01/06/20 12:06 Montelukast Sodium (Singulair) 10 mg QHS PO 01/05/20 21:00 01/05/20 21:41 Multivitamins (Theragram-M) 1 tab DAILY PO 01/05/20 09:00 Simvastatin (Zocor) 10 mg DAILY PO 01/05/20 09:00 01/06/20 09:07 Sodium Chloride 1,000 ml @ 100 mls/hr Q10H IV 01/04/20 13:00 01/06/20 14:48 DC 01/06/20 09:08 Allergies Coded Allergies: Sulfa (Sulfonamide Antibiotics) (Verified Allergy, Intermediate, RASH, 04/25/19) streptomycin (Verified Allergy, Intermediate, RASH, 04/25/19) hydrochlorothiazide (Verified Allergy, Unknown, HYPOTENSION, ELEVATED TEMP, 04/25/19) Odilia Schilling MD Jan 06, 2020 14:49
[2020-01-06] MEDS ORDERED: ALBUTEROL SULFATE 2.5 MG/0.5 ML INH NEB SOLN NEB PRN (15:00)
[2020-01-06] MEDS ORDERED: LEVEMIR (INSULIN DETEMIR) 1 UNITS/0.01ML SC ONE (15:00)
[2020-01-06] MEDS: MONTELUKAST 10 MG TAB PO SCH (21:04)
[2020-01-06] MEDS: ENOXAPARIN 40MG/0.4ML SYRINGE (J1650 PER 10MG) SC SCH (21:04)
[2020-01-06 22:00] VITALS: BP 158/84
[2020-01-07] MEDS: IPRATROPIUM 0.5MG/ALBUTEROL 2.5MG INH SOL UD 3ML (DUONEB) INH SCH ×4 (01:40→19:30)
[2020-01-07] MEDS: LEVOTHYROXINE 50MCG TABLET (0.05MG) PO SCH (05:53)
[2020-01-07 06:00] VITALS: BP 157/85
[2020-01-07 06:41] LABS: HEMATOCRIT 37.6 % (36.0-47.0); HEMOGLOBIN 12.3 g/dl (12.0-15.5); MEAN CORPUSCULAR HEMOGLOBIN 28.6 pg (27.0-33.0); MEAN CORPUSCULAR HGB CONC 32.7 g/dl (32.0-36.5); MEAN CORPUSCULAR VOLUME 87.4 fl (80.0-96.0); PLATELET COUNT, AUTOMATED 181 10^3/uL (150-450); WHITE BLOOD COUNT 6.3 10^3/uL (4.0-10.0)
[2020-01-07 07:07] LABS: BLOOD UREA NITROGEN 16 MG/DL (7-18); CREATININE FOR GFR 0.85 MG/DL (0.55-1.30); GLUCOSE, FASTING 151 MG/DL (70-100)
[2020-01-07 07:08] LABS: ALBUMIN 3.2 GM/DL (3.2-5.2); ALT/SGPT 35 U/L (12-78); BILIRUBIN,TOTAL 0.3 MG/DL (0.2-1.0); CARBON DIOXIDE LEVEL 26 MEQ/L (21-32); CHLORIDE LEVEL 109 MEQ/L (98-107); GLOMERULAR FILTRATION RATE > 60.0 (>45); POTASSIUM SERUM 3.6 MEQ/L (3.5-5.1); SODIUM LEVEL 143 MEQ/L (136-145); TOTAL PROTEIN 6.4 GM/DL (6.4-8.2)
[2020-01-07] MEDS: BUDESONIDE 0.25 MG/2 ML INHALATION SUSPENSION INH SCH ×2 (08:07→19:30)
[2020-01-07] MEDS: MULTIVITAMINS/MINERALS THERAP 1 TAB PO SCH (08:56)
[2020-01-07] MEDS ORDERED: LEVEMIR (INSULIN DETEMIR) 1 UNITS/0.01ML SC SCH (09:00)
[2020-01-07] MEDS: MAGNESIUM OXIDE 400 MG TAB (MAG-OX) PO SCH ×2 (09:07→20:55)
[2020-01-07] MEDS: HumaLOG INSULIN (NovoLOG) PER UNIT SC SCH ×4 (09:07→20:47)
[2020-01-07] MEDS: LEVEMIR (INSULIN DETEMIR) 1 UNITS/0.01ML SC SCH (09:07)
[2020-01-07] MEDS: bisoproloL fumarate 5 MG TAB PO SCH (09:10)
[2020-01-07] MEDS: CYANOCOBALAMIN 500 MCG TAB PO SCH (09:11)
[2020-01-07] MEDS: SIMVASTATIN 10 MG TAB PO SCH (09:11)
[2020-01-07] MEDS: ACETAMINOPHEN TAB 650MG DOSE (2X325MG) PO PRN ×2 (09:12→20:56)
[2020-01-07] MEDS: DOXYCYCLINE HYCLATE 100 MG in D5W MINI-BAG PLUS 100 ML IV SCH (12:31)
[2020-01-07 14:00] VITALS: BP 148/79
[2020-01-07] MEDS: cefTRIAXone SOD 1 GM in D5W MINI-BAG PLUS 50 ML IV SCH (14:32)
[2020-01-07 17:32] LABS: BODY FLUID CULTURE Not indicated. (.); LEGIONELLA ANTIGEN URINE Negative (Negative); ORGANISM ID Not indicated. (.); SPECIMEN SOURCE Urine (.); URINE STREP PNEUMONIAE ANTIGEN Negative (Negative)
[2020-01-07] MEDS ORDERED: FUROSEMIDE 20MG/2ML VIAL (J1940) IV ONE (18:45)
--- NOTE | 2020-01-07 18:49 | IPNPDOC ---
Date Seen The patient was seen on 01/07/20. Progress Note SUBJECTIVE: Blood pressure systolic 150's-160 mmHg, IV fluids stopped 01/06/20. 88-92% on RA at rest, dropped to 86-87% on RA with ambulation. She feels as though she is slowly improving and I agree. She denies increased shortness of breath from admission, chest pain, nausea, vomiting, fevers or chills. OBJECTIVE: VITAL SIGNS: Please see below PHYSICAL EXAMINATION: CONSTITUTIONAL: No acute distress, resting comfortably, AAO x 3 EYES: PERRLA, EOM intact, corrective lenses in place HENT, MOUTH: Normocephalic, atraumatic, moist mucous membranes NECK: SUPPLE, no JVD, no lymphadenopathy, no carotid bruit CV: Regular rate and rhythm, S1S2 normal, no murmurs/rubs/gallops RESPIRATORY: Clear to auscultation bilaterally, no rales/rhonchi/wheezes GI: BS positive in 4 quadrants, soft, nontender, nondistended, no rebound or guarding, no organomegaly : Deferred MUSCULOSKELETAL: Normal ROM. No cyanosis, clubbing, swelling, joint deformity, extremity edema INTEGUMENTARY: Intact, no rashes, no lesions, no erythema NEUROLOGIC: Cranial Nerves II-XII are intact, no focal deficits PSYCHIATRIC: Mood and affect are normal CURRENT MEDICATIONS: Please see below LABORATORY DATA: Please see below IMAGING: No new imaging ASSESSMENT: 64 y/o F with PMH of hypertension, hypothyroidism, diabetes mellitus, TERESA admitted for treatment of recurrent community acquired pneumonia. PLAN: 1. Community-acquired pneumonia - 88-92% on RA at rest, dropped to 86-87% on RA with ambulation. Not previously on home O2 -WBC wnl, afebrile overnight. Hx of prior pneumonia in 08/2019 -C/w acapella, ceftriaxone and doxycycline (Day 3), duoneb ATC, albuterol PRN -F/u daily CBC, sputum cx unable to be provided 2. HTN. -BP 152/84, stopped IVFs. -Will give one time dose lasix 40 mg IV -C/w home BB 3. DM type II -HbA1c 6.9, Blood sugar uncontrolled ranging 250 -Uncontrolled due to steroids and active infection combined. Steroids stopped 01/06/20 -Increased levemir to 12 U SC QAM, first dose today -C/w ISS, AC/HS blood sugar checks, consistent carb diet. 4. Hypothyroidism -C/w levothyroxine 5. TERESA -Can use home CPAP 6. Asthma -Not currently in exacerbation -Stopped steroids. -C/w duoneb ATC, albuterol PRN, pulmicort BID 7. DVT px. -Enoxaparin DISPOSITION: Currently admitted under inpatient. Plan is discharge home when medically improved. VS, I&O, 24H, Fishbone Vital Signs/I&O Vital Signs Date Time Temp Pulse Resp B/P (MAP) Pulse Ox O2 Delivery O2 Flow Rate FiO2 01/07/20 15:58 92 Room Air 01/07/20 14:00 97.5 107 18 148/79 (102) 01/07/20 06:00 2.0 I&O- Last 24 Hours up to 6 AM 01/07/20 06:00 Intake Total 2470 ml Output Total 2900 ml Balance -430 ml Laboratory Data 24H LABS Laboratory Tests 2 01/06/20 19:43: Bedside Glucose (Misc Panel) 243H 01/07/20 06:11: Nucleated Red Blood Cells % (auto) 0.0, Anion Gap 8, Glomerular Filtration Rate > 60.0, Calcium Level 9.0, Total Bilirubin 0.3, Aspartate Amino Transf (AST/SGOT) 21, Alanine Aminotransferase (ALT/SGPT) 35, Alkaline Phosphatase 59, Total Protein 6.4, Albumin 3.2, Albumin/Globulin Ratio 1.0L 01/07/20 11:19: Bedside Glucose (Misc Panel) 143H 01/07/20 16:30: Bedside Glucose (Misc Panel) 121H CBC/BMP Laboratory Tests 01/07/20 06:11 Microbiology Microbiology 01/04/20 Urine Culture - Final, Complete 01/04/20 Respiratory Virus Panel (PCR) (DOMENICA) - Final, Complete 01/04/20 Blood Culture - Preliminary, Resulted No Growth after 72 hours. All specime... Current Medications Current Medications Medications (Trade) Dose Ordered Sig/Mary Route PRN Reason Start Time Stop Time Status Last Admin Dose Admin Acetaminophen (Tylenol Tab) 650 mg Q6HP PRN PO PAIN OR FEVER 01/04/20 13:00 01/07/20 09:12 Albuterol Sulfate (Proventil Neb) 2.5 mg Q2HP PRN NEB SOB/WHEEZING 01/06/20 15:00 Albuterol/ Ipratropium (Combivent Respimat 100-20mcg) 4 puff Q20M INH 01/04/20 10:00 01/04/20 10:41 DC 01/04/20 11:13 Albuterol/ Ipratropium (Duoneb (Ipr 0.5mg/Alb 2.5mg)) 3 ml RQ4H INH 01/04/20 16:00 01/06/20 15:03 DC 01/06/20 11:42 Albuterol/ Ipratropium (Duoneb (Ipr 0.5mg/Alb 2.5mg)) 3 ml RQ6H INH 01/06/20 20:00 01/07/20 14:02 Benzonatate (Tessalon Perles) 100 mg TIDP PRN PO COUGH 01/04/20 18:45 01/05/20 21:41 Bisoprolol Fumarate (Zebeta) 5 mg DAILY PO 01/05/20 09:00 01/07/20 09:10 Budesonide (Pulmicort) 0.25 mg RBID INH 01/05/20 08:00 01/07/20 08:07 Ceftriaxone Sodium 1 gm/ Dextrose 50 ml @ 100 mls/hr Q24H IV 01/05/20 13:00 01/07/20 14:32 Cyanocobalamin (Vitamin B12) 500 mcg DAILY PO 01/05/20 09:00 01/07/20 09:11 Dextrose (Dextrose 50%) 25 ml ASDIRECTED PRN IV SEE LABEL COMMENTS 01/04/20 19:15 Doxycycline Hyclate 100 mg/ Dextrose 100 ml @ 100 mls/hr Q12H IV 01/05/20 00:00 01/07/20 12:31 Enoxaparin Sodium (Lovenox) 40 mg DAILY@2100 SC 01/04/20 21:00 01/06/20 21:04 Glucagon (Glucagon) 1 mg ASDIRECTED PRN SC SEE LABEL COMMENTS 01/04/20 19:15 Glucose (Glucose) 16 GM ASDIRECTED PRN PO SEE LABEL COMMENTS 01/04/20 19:15 Home Med (Med Rec Complete!) ASDIRECTED XX 01/04/20 12:30 01/04/20 12:34 DC Insulin Detemir (Levemir Insulin) 8 units QAM SC 01/07/20 09:00 01/07/20 08:46 DC Insulin Detemir (Levemir Insulin) 12 units QAM SC 01/07/20 09:00 01/07/20 09:07 Insulin Human Lispro (HumaLOG INSULIN) See Protocol Table AC SC 01/05/20 07:30 01/07/20 17:51 Insulin Human Lispro (HumaLOG INSULIN) See Protocol Table QHS SC 01/04/20 21:00 01/05/20 21:41 Levothyroxine Sodium (Synthroid) 50 mcg DAILY@0600 PO 01/05/20 06:00 01/07/20 05:53 Magnesium Chloride (Slow-Mag) 71.5 mg DAILY PO 01/06/20 09:00 01/05/20 13:26 DC Magnesium Oxide (Mag-Ox) 800 mg BID PO 01/05/20 09:00 01/07/20 09:07 Methylprednisolone (SOLU medrol) 60 mg Q12H IV 01/04/20 23:00 01/06/20 14:56 DC 01/06/20 12:06 Montelukast Sodium (Singulair) 10 mg QHS PO 01/05/20 21:00 01/06/20 21:04 Multivitamins (Theragram-M) 1 tab DAILY PO 01/05/20 09:00 Simvastatin (Zocor) 10 mg DAILY PO 01/05/20 09:00 01/07/20 09:11 Sodium Chloride 1,000 ml @ 100 mls/hr Q10H IV 01/04/20 13:00 01/06/20 14:48 DC 01/06/20 09:08 Allergies Coded Allergies: Sulfa (Sulfonamide Antibiotics) (Verified Allergy, Intermediate, RASH, 04/25/19) streptomycin (Verified Allergy, Intermediate, RASH, 04/25/19) hydrochlorothiazide (Verified Allergy, Unknown, HYPOTENSION, ELEVATED TEMP, 04/25/19) Odilia Schilling MD Jan 07, 2020 18:49
[2020-01-07] MEDS ORDERED: FUROSEMIDE 40MG/4ML VIAL (J1940) IV ONE (19:00)
[2020-01-07] MEDS: ENOXAPARIN 40MG/0.4ML SYRINGE (J1650 PER 10MG) SC SCH (20:54)
[2020-01-07] MEDS: MONTELUKAST 10 MG TAB PO SCH (20:54)
[2020-01-07 22:00] VITALS: BP 143/88
[2020-01-08] MEDS: DOXYCYCLINE HYCLATE 100 MG in D5W MINI-BAG PLUS 100 ML IV SCH ×3 (01:16→23:40)
[2020-01-08] MEDS: IPRATROPIUM 0.5MG/ALBUTEROL 2.5MG INH SOL UD 3ML (DUONEB) INH SCH ×4 (01:25→19:53)
[2020-01-08] MEDS: LEVOTHYROXINE 50MCG TABLET (0.05MG) PO SCH (05:30)
[2020-01-08 06:00] VITALS: BP 124/65
[2020-01-08 06:35] LABS: ALBUMIN 3.2 GM/DL (3.2-5.2); ALT/SGPT 64 U/L (12-78); BILIRUBIN,TOTAL 0.4 MG/DL (0.2-1.0); BLOOD UREA NITROGEN 17 MG/DL (7-18); CALCIUM LEVEL 8.8 MG/DL (8.8-10.2); CARBON DIOXIDE LEVEL 29 MEQ/L (21-32); CHLORIDE LEVEL 106 MEQ/L (98-107); CREATININE FOR GFR 0.84 MG/DL (0.55-1.30); GLOMERULAR FILTRATION RATE > 60.0 (>45); GLUCOSE, FASTING 102 MG/DL (70-100); POTASSIUM SERUM 3.3 MEQ/L (3.5-5.1); SODIUM LEVEL 144 MEQ/L (136-145); TOTAL PROTEIN 6.1 GM/DL (6.4-8.2)
[2020-01-08] MEDS: HumaLOG INSULIN (NovoLOG) PER UNIT SC SCH ×4 (07:30→20:37)
[2020-01-08] MEDS: BUDESONIDE 0.25 MG/2 ML INHALATION SUSPENSION INH SCH ×2 (07:43→19:52)
[2020-01-08] MEDS: MULTIVITAMINS/MINERALS THERAP 1 TAB PO SCH (09:00)
[2020-01-08] MEDS: CYANOCOBALAMIN 500 MCG TAB PO SCH (09:36)
[2020-01-08] MEDS: MAGNESIUM OXIDE 400 MG TAB (MAG-OX) PO SCH ×2 (09:37→20:43)
[2020-01-08] MEDS: SIMVASTATIN 10 MG TAB PO SCH (09:38)
[2020-01-08] MEDS: POTASSIUM CHLORIDE 10 MEQ SR TABLET PO SCH (09:38)
[2020-01-08] MEDS: bisoproloL fumarate 5 MG TAB PO SCH (09:39)
[2020-01-08] MEDS: LEVEMIR (INSULIN DETEMIR) 1 UNITS/0.01ML SC SCH (09:45)
[2020-01-08] MEDS: cefTRIAXone SOD 1 GM in D5W MINI-BAG PLUS 50 ML IV SCH (13:47)
[2020-01-08 14:00] VITALS: BP 145/65
--- NOTE | 2020-01-08 16:52 | IPNPDOC ---
Date Seen The patient was seen on 01/08/20. Progress Note SUBJECTIVE: Neg fluid balance, BP improved and diuresed nicely over past 24 hours. The patient is 95% on room air with resting however drops to 84% with ambulation on room air. She is still requiring 2 L nasal cannula with ambulation. Potassium was low at 3.3 and 30 mEq of potassium chloride supplementation. She feels frustrated and was tearful at times during our meeting this morning. She denies increased shortness of breath from admission, chest pain, nausea, vomiting, fevers or chills. OBJECTIVE: VITAL SIGNS: Please see below PHYSICAL EXAMINATION: CONSTITUTIONAL: No acute distress, sitting up at bedside chair comfortably, AAO x 3 EYES: PERRLA, EOM intact, corrective lenses in place HENT, MOUTH: Normocephalic, atraumatic, moist mucous membranes NECK: SUPPLE, no JVD, no lymphadenopathy, no carotid bruit CV: Regular rate and rhythm, S1S2 normal, no murmurs/rubs/gallops RESPIRATORY: Clear to auscultation bilaterally, no rales/rhonchi/wheezes GI: BS positive in 4 quadrants, soft, nontender, nondistended, no rebound or guarding, no organomegaly : Deferred MUSCULOSKELETAL: Normal ROM. No cyanosis, clubbing, swelling, joint deformity, extremity edema INTEGUMENTARY: Intact, no rashes, no lesions, no erythema CURRENT MEDICATIONS: Please see below LABORATORY DATA: Please see below IMAGING: No new imaging ASSESSMENT: 64 y/o F with PMH of hypertension, hypothyroidism, diabetes mellitus, TERESA admitted for treatment of recurrent community acquired pneumonia. PLAN: 1. Community-acquired pneumonia. Hx of prior pneumonia in 08/2019 - 95% on room air with resting, drops to 84% with ambulation on room air. Not previously on home O2 -WBC wnl, afebrile overnight. -Discussed walking desaturation test to be done early AM on 01/09/20. Based on those results, would likely determine if patient could be discharged home with home O2. As I believe this will take some time to improve, she would benefit from home O2 services if still hypoxic on exam. -Sputum cx obtained evening of 01/07/20, good sample. F/u results -C/w acapella, ceftriaxone and doxycycline (Day 4), duoneb ATC, albuterol PRN -F/u daily CBC 2. HTN. -BP improved with lasix. -Neg fluid balance -C/w home BB 3. DM type II -HbA1c 6.9, Blood sugar much improved. -Uncontrolled due to steroids and active infection combined. Steroids stopped 01/06/20 -C/w levemir, ISS, AC/HS blood sugar checks, consistent carb diet. 4.Hypokalemia likely 2/2 to diuresis -Potassium 3.3, supplemented 30 mEq -F/u AM labs 5. Hypothyroidism -C/w levothyroxine 6. TERESA -Can use home CPAP 7. Asthma -Not currently in exacerbation -Stopped steroids. -C/w duoneb ATC, albuterol PRN, pulmicort BID 8. DVT px. -Enoxaparin DISPOSITION: Currently admitted under inpatient. Plan is discharge home when medically improved, hopefully in next 48 hrs . VS, I&O, 24H, Fishbone Vital Signs/I&O Vital Signs Date Time Temp Pulse Resp B/P (MAP) Pulse Ox O2 Delivery O2 Flow Rate FiO2 01/08/20 14:00 98.7 81 18 145/65 (91) 94 Room Air 01/08/20 09:00 2.0 I&O- Last 24 Hours up to 6 AM 01/08/20 06:00 Intake Total 2520 ml Output Total 7100 ml Balance -4580 ml Laboratory Data 24H LABS Laboratory Tests 2 01/07/20 20:00: Bedside Glucose (Misc Panel) 117H 01/08/20 05:42: Anion Gap 9, Glomerular Filtration Rate > 60.0, Calcium Level 8.8, Total Bilirubin 0.4, Aspartate Amino Transf (AST/SGOT) 46H, Alanine Aminotransferase (ALT/SGPT) 64, Alkaline Phosphatase 60, Total Protein 6.1L, Albumin 3.2, Albumin/Globulin Ratio 1.1L 01/08/20 11:30: Bedside Glucose (Misc Panel) 143H 01/08/20 16:28: CBC/BMP Laboratory Tests 01/08/20 05:42 Microbiology Microbiology 01/07/20 Gram Stain - Final, Resulted 01/07/20 Sputum Culture, Resulted Pending 01/04/20 Urine Culture - Final, Complete 01/04/20 Respiratory Virus Panel (PCR) (DOMENICA) - Final, Complete 01/04/20 Blood Culture - Preliminary, Resulted No Growth after 72 hours. All specime... Current Medications Current Medications Medications (Trade) Dose Ordered Sig/Mary Route PRN Reason Start Time Stop Time Status Last Admin Dose Admin Acetaminophen (Tylenol Tab) 650 mg Q6HP PRN PO PAIN OR FEVER 01/04/20 13:00 01/07/20 20:56 Albuterol Sulfate (Proventil Neb) 2.5 mg Q2HP PRN NEB SOB/WHEEZING 01/06/20 15:00 Albuterol/ Ipratropium (Combivent Respimat 100-20mcg) 4 puff Q20M INH 01/04/20 10:00 01/04/20 10:41 DC 01/04/20 11:13 Albuterol/ Ipratropium (Duoneb (Ipr 0.5mg/Alb 2.5mg)) 3 ml RQ4H INH 01/04/20 16:00 01/06/20 15:03 DC 01/06/20 11:42 Albuterol/ Ipratropium (Duoneb (Ipr 0.5mg/Alb 2.5mg)) 3 ml RQ6H INH 01/06/20 20:00 01/08/20 14:35 Benzonatate (Tessalon Perles) 100 mg TIDP PRN PO COUGH 01/04/20 18:45 01/05/20 21:41 Bisoprolol Fumarate (Zebeta) 5 mg DAILY PO 01/05/20 09:00 01/08/20 09:39 Budesonide (Pulmicort) 0.25 mg RBID INH 01/05/20 08:00 01/07/20 19:30 Ceftriaxone Sodium 1 gm/ Dextrose 50 ml @ 100 mls/hr Q24H IV 01/05/20 13:00 01/08/20 13:47 Cyanocobalamin (Vitamin B12) 500 mcg DAILY PO 01/05/20 09:00 01/08/20 09:36 Dextrose (Dextrose 50%) 25 ml ASDIRECTED PRN IV SEE LABEL COMMENTS 01/04/20 19:15 Doxycycline Hyclate 100 mg/ Dextrose 100 ml @ 100 mls/hr Q12H IV 01/05/20 00:00 01/08/20 12:13 Enoxaparin Sodium (Lovenox) 40 mg DAILY@2100 SC 01/04/20 21:00 01/07/20 20:54 Glucagon (Glucagon) 1 mg ASDIRECTED PRN SC SEE LABEL COMMENTS 01/04/20 19:15 Glucose (Glucose) 16 GM ASDIRECTED PRN PO SEE LABEL COMMENTS 01/04/20 19:15 Home Med (Med Rec Complete!) ASDIRECTED XX 01/04/20 12:30 01/04/20 12:34 DC Insulin Detemir (Levemir Insulin) 8 units QAM SC 01/07/20 09:00 01/07/20 08:46 DC Insulin Detemir (Levemir Insulin) 12 units QAM SC 01/07/20 09:00 01/08/20 09:45 Insulin Human Lispro (HumaLOG INSULIN) See Protocol Table AC SC 01/05/20 07:30 01/08/20 12:13 Insulin Human Lispro (H[facility]LOG INSULIN) [facility] 01/04/20 21:00 01/05/20 21:41 Levothyroxine Sodium (Synthroid) 50 mcg DAILY@0600 PO 01/05/20 06:00 01/08/20 05:30 Magnesium Chloride (Slow-Mag) 71.5 mg DAILY PO 01/06/20 09:00 01/05/20 13:26 DC Magnesium Oxide (Mag-Ox) 800 mg BID PO 01/05/20 09:00 01/08/20 09:37 Methylprednisolone (SOLU medrol) 60 mg Q12H IV 01/04/20 23:00 01/06/20 14:56 DC 01/06/20 12:06 Montelukast Sodium (Singulair) 10 mg QHS PO 01/05/20 21:00 01/07/20 20:54 Multivitamins (Theragram-M) 1 tab DAILY PO 01/05/20 09:00 Potassium Chloride (Micro-K Extencaps) 30 meq DAILY PO 01/08/20 09:00 01/08/20 09:38 Simvastatin (Zocor) 10 mg DAILY PO 01/05/20 09:00 01/08/20 09:38 Sodium Chloride 1,000 ml @ 100 mls/hr Q10H IV 01/04/20 13:00 01/06/20 14:48 DC 01/06/20 09:08 Allergies Coded Allergies: Sulfa (Sulfonamide Antibiotics) (Verified Allergy, Intermediate, RASH, 04/25/19) streptomycin (Verified Allergy, Intermediate, RASH, 04/25/19) hydrochlorothiazide (Verified Allergy, Unknown, HYPOTENSION, ELEVATED TEMP, 04/25/19) Odilia Schilling MD Jan 08, 2020 16:52
[2020-01-08] MEDS: MONTELUKAST 10 MG TAB PO SCH (20:43)
[2020-01-08] MEDS: ENOXAPARIN 40MG/0.4ML SYRINGE (J1650 PER 10MG) SC SCH (20:43)
[2020-01-08 22:00] VITALS: BP 139/66
[2020-01-09] MEDS: IPRATROPIUM 0.5MG/ALBUTEROL 2.5MG INH SOL UD 3ML (DUONEB) INH SCH ×4 (00:44→19:11)
[2020-01-09] MEDS: LEVOTHYROXINE 50MCG TABLET (0.05MG) PO SCH (05:43)
[2020-01-09 06:00] VITALS: BP 151/86
[2020-01-09 06:54] LABS: ALT/SGPT 48 U/L (12-78); BILIRUBIN,TOTAL 0.5 MG/DL (0.2-1.0); BLOOD UREA NITROGEN 15 MG/DL (7-18); CALCIUM LEVEL 8.4 MG/DL (8.8-10.2); CARBON DIOXIDE LEVEL 29 MEQ/L (21-32); CHLORIDE LEVEL 105 MEQ/L (98-107); CREATININE FOR GFR 0.73 MG/DL (0.55-1.30); GLOMERULAR FILTRATION RATE > 60.0 (>45); GLUCOSE, FASTING 107 MG/DL (70-100); POTASSIUM SERUM 3.8 MEQ/L (3.5-5.1); SODIUM LEVEL 141 MEQ/L (136-145); TOTAL PROTEIN 5.6 GM/DL (6.4-8.2)
[2020-01-09] MEDS: HumaLOG INSULIN (NovoLOG) PER UNIT SC SCH ×4 (07:30→21:00)
[2020-01-09] MEDS: BUDESONIDE 0.25 MG/2 ML INHALATION SUSPENSION INH SCH ×2 (07:43→19:11)
[2020-01-09] MEDS: MAGNESIUM OXIDE 400 MG TAB (MAG-OX) PO SCH ×2 (08:36→21:31)
[2020-01-09] MEDS: SIMVASTATIN 10 MG TAB PO SCH (08:39)
[2020-01-09] MEDS: bisoproloL fumarate 5 MG TAB PO SCH (08:39)
[2020-01-09] MEDS: CYANOCOBALAMIN 500 MCG TAB PO SCH (08:39)
[2020-01-09] MEDS: POTASSIUM CHLORIDE 10 MEQ SR TABLET PO SCH (08:39)
[2020-01-09] MEDS: LEVEMIR (INSULIN DETEMIR) 1 UNITS/0.01ML SC SCH (08:40)
[2020-01-09] MEDS: MULTIVITAMINS/MINERALS THERAP 1 TAB PO SCH (08:41)
[2020-01-09 11:18] LABS: HEMATOCRIT 36.3 % (36.0-47.0); HEMOGLOBIN 11.9 g/dl (12.0-15.5); MEAN CORPUSCULAR HGB CONC 32.8 g/dl (32.0-36.5); MEAN CORPUSCULAR VOLUME 88.3 fl (80.0-96.0); PLATELET COUNT, AUTOMATED 171 10^3/uL (150-450); RED BLOOD COUNT 4.11 10^6/uL (4.00-5.40); WHITE BLOOD COUNT 5.4 10^3/uL (4.0-10.0)
--- NOTE | 2020-01-09 11:50 | REP ---
CHEST, TWO VIEWS: COMPARISON: 01/04/2020 as well as other prior exams. There is improvement in bibasilar infiltrates with mild residual. There are underlying fibroatelectatic changes as well. Cardiomegaly is unchanged. Mediastinal silhouette is unchanged. There are degenerative changes of the spine. IMPRESSION: Improved bibasilar infiltrates with mild residual, superimposed on chronic changes. Electronically Signed by Murtaza Crowe MD 01/12/2020 09:23 A
[2020-01-09] MEDS: lisinopriL 5 MG TAB PO SCH (12:10)
[2020-01-09] MEDS: DOXYCYCLINE HYCLATE 100 MG in D5W MINI-BAG PLUS 100 ML IV SCH ×2 (12:10→23:12)
[2020-01-09] MEDS ORDERED: FUROSEMIDE 40MG/4ML VIAL (J1940) IV ONE (13:45)
[2020-01-09 14:00] VITALS: BP 143/82
[2020-01-09] MEDS: cefTRIAXone SOD 1 GM in D5W MINI-BAG PLUS 50 ML IV SCH (14:56)
--- NOTE | 2020-01-09 20:30 | IPNPDOC ---
Date Seen The patient was seen on 01/09/20. Progress Note SUBJECTIVE: Lower ext swelling, giving another dose lasix today. 2 L NC needed with CPAP last evening, doing noctural testing this evening. 93-94% at rest, per nursing 87% with ambulation. Added ACEi to regimen while here due to uncontrolled BP. She denies increased shortness of breath from admission, chest pain, nausea, vomiting, fevers or chills. OBJECTIVE: VITAL SIGNS: Please see below PHYSICAL EXAMINATION: CONSTITUTIONAL: No acute distress, sitting up at bedside chair comfortably, AAO x 3 EYES: PERRLA, EOM intact, corrective lenses in place HENT, MOUTH: Normocephalic, atraumatic, moist mucous membranes NECK: SUPPLE, no JVD, no lymphadenopathy, no carotid bruit CV: Regular rate and rhythm, S1S2 normal, no murmurs/rubs/gallops RESPIRATORY: Clear to auscultation bilaterally, no rales/rhonchi/wheezes GI: BS positive in 4 quadrants, soft, nontender, nondistended, no rebound or guarding, no organomegaly : Deferred MUSCULOSKELETAL: Normal ROM. No cyanosis, clubbing, swelling, joint deformity, +1 pitting extremity edema INTEGUMENTARY: Intact, no rashes, no lesions, no erythema CURRENT MEDICATIONS: Please see below LABORATORY DATA: Please see below IMAGING: CXR: Improved bibasilar infiltrates with mild residual, superimposed on chronic changes. ASSESSMENT: 64 y/o F with PMH of hypertension, hypothyroidism, diabetes mellitus, TERESA admitted for treatment of recurrent community acquired pneumonia. PLAN: 1. Community-acquired pneumonia. Hx of prior pneumonia in 08/2019 -CXR: improved from admission -WBC wnl, afebrile overnight. -O2 testing in AM and overnight. . -Sputum cx: yeast, not treating. -C/w acapella, ceftriaxone and doxycycline (Day 5), duoneb ATC, albuterol PRN -F/u daily CBC 2. HTN. -BP systolic 140-150's -To give another dose lasix, added ACEi standing -C/w home BB 3. DM type II -HbA1c 6.9, better controlled since stopping steroids 01/06/20 -C/w levemir, ISS, AC/HS blood sugar checks, consistent carb diet. 4.Hypokalemia likely 2/2 to diuresis- resolved -Watch for drop of potassium again with diuresis -F/u AM labs 5. Hypothyroidism -C/w levothyroxine 6. TERESA -May require night time O2 -F/u noctural study -Can use home CPAP 7. Asthma -Not currently in exacerbation -Stopped steroids. -C/w duoneb ATC, albuterol PRN, pulmicort BID 8. DVT px. -Enoxaparin DISPOSITION: Currently admitted under inpatient. Plan is discharge home when medically improved, hopefully in next 24-48 hrs . VS, I&O, 24H, Fishbone Vital Signs/I&O Vital Signs Date Time Temp Pulse Resp B/P (MAP) Pulse Ox O2 Delivery O2 Flow Rate FiO2 01/09/20 14:00 99.2 78 18 143/82 (102) 95 Room Air 01/09/20 09:00 2.0 I&O- Last 24 Hours up to 6 AM 01/09/20 05:59 Intake Total 1660 ml Output Total 1050 ml Balance 610 ml Laboratory Data 24H LABS Laboratory Tests 2 01/09/20 05:26: Nucleated Red Blood Cells % (auto) 0.6H, Anion Gap 7L, Glomerular Filtration Rate > 60.0, Calcium Level 8.4L, Total Bilirubin 0.5, Aspartate Amino Transf (AST/SGOT) 24, Alanine Aminotransferase (ALT/SGPT) 48, Alkaline Phosphatase 51, Total Protein 5.6L, Albumin 3.0L, Albumin/Globulin Ratio 1.2 01/09/20 11:30: Bedside Glucose (Misc Panel) 154H 01/09/20 16:24: Bedside Glucose (Misc Panel) 181H CBC/BMP Laboratory Tests 01/09/20 05:26 Microbiology Microbiology 01/07/20 Gram Stain - Final, Resulted 01/07/20 Sputum Culture - Preliminary, Resulted Yeast Like Organism 01/04/20 Urine Culture - Final, Complete 01/04/20 Respiratory Virus Panel (PCR) (DOMENICA) - Final, Complete 01/04/20 Blood Culture - Final, Complete NO GROWTH AFTER 5 DAYS Current Medications Current Medications Medications (Trade) Dose Ordered Sig/Mary Route PRN Reason Start Time Stop Time Status Last Admin Dose Admin Acetaminophen (Tylenol Tab) 650 mg Q6HP PRN PO PAIN OR FEVER 01/04/20 13:00 01/07/20 20:56 Albuterol Sulfate (Proventil Neb) 2.5 mg Q2HP PRN NEB SOB/WHEEZING 01/06/20 15:00 Albuterol/ Ipratropium (Combivent Respimat 100-20mcg) 4 puff Q20M INH 01/04/20 10:00 01/04/20 10:41 DC 01/04/20 11:13 Albuterol/ Ipratropium (Duoneb (Ipr 0.5mg/Alb 2.5mg)) 3 ml RQ4H INH 01/04/20 16:00 01/06/20 15:03 DC 01/06/20 11:42 Albuterol/ Ipratropium (Duoneb (Ipr 0.5mg/Alb 2.5mg)) 3 ml RQ6H INH 01/06/20 20:00 01/09/20 19:11 Benzonatate (Tessalon Perles) 100 mg TIDP PRN PO COUGH 01/04/20 18:45 01/05/20 21:41 Bisoprolol Fumarate (Zebeta) 5 mg DAILY PO 01/05/20 09:00 01/09/20 08:39 Budesonide (Pulmicort) 0.25 mg RBID INH 01/05/20 08:00 01/09/20 19:11 Ceftriaxone Sodium 1 gm/ Dextrose 50 ml @ 100 mls/hr Q24H IV 01/05/20 13:00 01/09/20 14:56 Cyanocobalamin (Vitamin B12) 500 mcg DAILY PO 01/05/20 09:00 01/09/20 08:39 Dextrose (Dextrose 50%) 25 ml ASDIRECTED PRN IV SEE LABEL COMMENTS 01/04/20 19:15 Doxycycline Hyclate 100 mg/ Dextrose 100 ml @ 100 mls/hr Q12H IV 01/05/20 00:00 01/09/20 12:10 Enoxaparin Sodium (Lovenox) 40 mg DAILY@2100 SC 01/04/20 21:00 01/08/20 20:43 Glucagon (Glucagon) 1 mg ASDIRECTED PRN SC SEE LABEL COMMENTS 01/04/20 19:15 Glucose (Glucose) 16 GM ASDIRECTED PRN PO SEE LABEL COMMENTS 01/04/20 19:15 Home Med (Med Rec Complete!) ASDIRECTED XX 01/04/20 12:30 01/04/20 12:34 DC Insulin Detemir (Levemir Insulin) 8 units QAM RI 01/07/20 09:00 01/07/20 08:46 DC Insulin Detemir (Levemir Insulin) 12 units QAM RI 01/07/20 09:00 01/09/20 08:40 Insulin Human Lispro (HumaLOG INSULIN) See Protocol Table AC RI 01/05/20 07:30 01/09/20 17:47 Insulin Human Lispro (HumaLOG INSULIN) See Protocol Table QHS RI 01/04/20 21:00 01/05/20 21:41 Levothyroxine Sodium (Synthroid) 50 mcg DAILY@0600 PO 01/05/20 06:00 01/09/20 05:43 Lisinopril (Prinivil) 5 mg DAILY PO 01/09/20 09:00 01/09/20 12:10 Magnesium Chloride (Slow-Mag) 71.5 mg DAILY PO 01/06/20 09:00 01/05/20 13:26 DC Magnesium Oxide (Mag-Ox) 800 mg BID PO 01/05/20 09:00 01/09/20 08:36 Methylprednisolone (SOLU medrol) 60 mg Q12H IV 01/04/20 23:00 01/06/20 14:56 DC 01/06/20 12:06 Montelukast Sodium (Singulair) 10 mg QHS PO 01/05/20 21:00 01/08/20 20:43 Multivitamins (Theragram-M) 1 tab DAILY PO 01/05/20 09:00 Potassium Chloride (Micro-K Extencaps) 30 meq DAILY PO 01/08/20 09:00 01/09/20 08:39 Simvastatin (Zocor) 10 mg DAILY PO 01/05/20 09:00 01/09/20 08:39 Sodium Chloride 1,000 ml @ 100 mls/hr Q10H IV 01/04/20 13:00 01/06/20 14:48 DC 01/06/20 09:08 Allergies Coded Allergies: Sulfa (Sulfonamide Antibiotics) (Verified Allergy, Intermediate, RASH, 04/25/19) streptomycin (Verified Allergy, Intermediate, RASH, 04/25/19) hydrochlorothiazide (Verified Allergy, Unknown, HYPOTENSION, ELEVATED TEMP, 04/25/19) Odilia Schilling MD Jan 09, 2020 20:30
[2020-01-09] MEDS: MONTELUKAST 10 MG TAB PO SCH (21:31)
[2020-01-09] MEDS: ENOXAPARIN 40MG/0.4ML SYRINGE (J1650 PER 10MG) SC SCH (21:31)
[2020-01-09 22:00] VITALS: BP 127/74
[2020-01-10] MEDS: IPRATROPIUM 0.5MG/ALBUTEROL 2.5MG INH SOL UD 3ML (DUONEB) INH SCH ×2 (01:46→07:39)
[2020-01-10] MEDS: LEVOTHYROXINE 50MCG TABLET (0.05MG) PO SCH (05:40)
[2020-01-10 06:00] VITALS: BP 124/74
[2020-01-10 06:58] LABS: HEMOGLOBIN 13.2 g/dl (12.0-15.5); MEAN CORPUSCULAR HEMOGLOBIN 28.7 pg (27.0-33.0); PLATELET COUNT, AUTOMATED 182 10^3/uL (150-450); WHITE BLOOD COUNT 6.2 10^3/uL (4.0-10.0)
[2020-01-10 07:25] LABS: ALBUMIN 3.3 GM/DL (3.2-5.2); ALT/SGPT 47 U/L (12-78); BLOOD UREA NITROGEN 16 MG/DL (7-18); CALCIUM LEVEL 9.1 MG/DL (8.8-10.2); CARBON DIOXIDE LEVEL 32 MEQ/L (21-32); CHLORIDE LEVEL 103 MEQ/L (98-107); CREATININE FOR GFR 0.81 MG/DL (0.55-1.30); GLOMERULAR FILTRATION RATE > 60.0 (>45); GLUCOSE, FASTING 106 MG/DL (70-100); SODIUM LEVEL 139 MEQ/L (136-145); TOTAL PROTEIN 6.7 GM/DL (6.4-8.2)
[2020-01-10] MEDS ORDERED: CEFU50TA PO (07:38)
[2020-01-10] MEDS ORDERED: DOXY-350 PO (07:38)
[2020-01-10] MEDS: BUDESONIDE 0.25 MG/2 ML INHALATION SUSPENSION INH SCH (07:39)
[2020-01-10] MEDS: HumaLOG INSULIN (NovoLOG) PER UNIT SC SCH ×2 (08:24→12:00)
[2020-01-10] MEDS: LEVEMIR (INSULIN DETEMIR) 1 UNITS/0.01ML SC SCH (08:24)
[2020-01-10] MEDS: MAGNESIUM OXIDE 400 MG TAB (MAG-OX) PO SCH (08:24)
[2020-01-10] MEDS: SIMVASTATIN 10 MG TAB PO SCH (08:24)
[2020-01-10] MEDS: CYANOCOBALAMIN 500 MCG TAB PO SCH (08:25)
[2020-01-10] MEDS: POTASSIUM CHLORIDE 10 MEQ SR TABLET PO SCH (08:25)
[2020-01-10] MEDS: MULTIVITAMINS/MINERALS THERAP 1 TAB PO SCH (08:26)
[2020-01-10 08:27] VITALS: BP 132/70
[2020-01-10] MEDS: bisoproloL fumarate 5 MG TAB PO SCH (08:27)
[2020-01-10] MEDS: lisinopriL 5 MG TAB PO SCH (08:27)
[2020-01-10] MEDS: DOXYCYCLINE HYCLATE 100 MG in D5W MINI-BAG PLUS 100 ML IV SCH (12:00)
--- NOTE | 2020-01-10 20:06 | DS.PDOC ---
Discharge Summary General Date of Admission Jan 04, 2020 at 12:57 Date of Discharge 01/10/20 Attending Physician: Odilia Schilling MD Discharge Summary HISTORY OF PRESENT ILLNESS: 64-year-old female with history of asthma and reports onset of fever, cough and runny nose over the past week. She attributed some of it to the recent humidity and heat. She returned today with significant malaise; she is found to have bilateral basilar pneumonia. She has ruled out for COVID-19 by rapid testing. She has had shortness of breath and wheezing. She has been unresponsive to inhalers. She denies any known exposures to anyone who has been ill. She states she has generally been at home due to the pandemic. She has had difficulty with urinary tract infection; urine cultures obtained on December 23 and December 30 are both positive for Escherichia coli. She has been on extended treatment course with Macrodantin. Patient was later admitted for community acquired pneumonia, hypoxia. HOSPITAL COURSE: The patient was started on ceftriaxone and doxycycline for community acquired pneumonia coverage. She was given incentive spirometer and acappella to use every 2 hours. Sputum sample later grew yeast. Culture was discussed with pulmonary (Dr. Bazzi) and patient was not treated with antifungals. She was kept on around the clock nebulizer treatments. She was initially placed on methylprednisolone which increased her blood sugars. This was stopped as she was not believed to be in exacerbation of her asthma. The patient remained hypoxic with activity and therefore was required to continue to use 2 L of oxygen while ambulating. At rest the patient was saturating in the mid 90s. She had a no cturnal oximetry test done due to some concern of her may be requiring oxygen with CPAP nightly; however, official testing showed she did not need this. The results of the nocturnal oximetry test were discussed with Dr. Bazzi, pulmonology. She had a mild amount of lower extremity edema likely secondary to IV fluids required from IV antibiotics. She was given several doses of Lasix on discharge and in the hospital to continue. The patient was discharged on 01/10/2020 and advised to follow-up with her primary care provider in the next 12 weeks after discharge. She is advised to continue to use 2 L of oxygen nasal cannula with activity only, with rest she does not need oxygen. She also does n ot require oxygen with CPAP nightly. On her next follow-up appointment with her primary care provider she should discuss the need to continue oxygen. At the time of discharge the patient denied any increased shortness of breath, nausea, vomiting, chest pain, fevers or chills. ROS: Negative except for what is mentioned above PAST MEDICAL HISTORY nephrolithiasis, [id number] diabetes mellitus, for which she is not on medication, essential hypertension, hypothyroidism, obstructive sleep apnea for which she makes use of CPAP, psoriasis, recent urinary tract infection with Escherichia coli, history of pneumonia in August 2019. PAST SURGICAL HISTORY , cholecystectomy, bilateral carpal tunnel release, hysterectomy, gastric bypass surgery Procedures include ureteral stents and lithotripsy. 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 DISCHARGE MEDICATIONS: Please see below. SUBJECTIVE: Lower ext swelling, giving another dose lasix today. 2 L NC needed with CPAP last evening, doing noctural testing this evening. 93-94% at rest, per nursing 87% with ambulation. Added ACEi to regimen while here due to uncontrolled BP. She denies increased shortness of breath from admission, chest pain, nausea, vomiting, fevers or chills. OBJECTIVE: VITAL SIGNS: Please see below PHYSICAL EXAMINATION: CONSTITUTIONAL: No acute distress, sitting up at bedside chair comfortably, AAO x 3 EYES: PERRLA, EOM intact, corrective lenses in place HENT, MOUTH: Normocephalic, atraumatic, moist mucous membranes NECK: SUPPLE, no JVD, no lymphadenopathy, no carotid bruit CV: Regular rate and rhythm, S1S2 normal, no murmurs/rubs/gallops RESPIRATORY: Clear to auscultation bilaterally, no rales/rhonchi/wheezes GI: BS positive in 4 quadrants, soft, nontender, nondistended, no rebound or guarding, no organomegaly : Deferred MUSCULOSKELETAL: Normal ROM. No cyanosis, clubbing, swelling, joint deformity, +1 pitting extremity edema INTEGUMENTARY: Intact, no rashes, no lesions, no erythema CURRENT MEDICATIONS: Please see below LABORATORY DATA: Please see below IMAGING: CXR: Improved bibasilar infiltrates with mild residual, superimposed on chronic changes. ASSESSMENT: 64 y/o F with PMH of hypertension, hypothyroidism, diabetes mellitus, TERESA admitted for treatment of recurrent community acquired pneumonia. PLAN: 1. Community-acquired pneumonia. Hx of prior pneumonia in 08/2019 -CXR: improved from admission -WBC wnl, afebrile overnight -Sputum cx: yeast, not treating. -C/w 2 L O2 with activity, no oxygen required at night or at rest. She is encouraged to f/u with PCP in 1-2 weeks to see if she needs to continue supplemental O2 -C/w incentive spirometery Q2 hrs while awake for 1 week, ceftin BID and doxycycline PO 2. HTN. -BP systolic 120-130 mmHg -C/w lasix another 3 days, home BB 3. DM type II -HbA1c 6.9, better controlled since stopping steroids 01/06/20 4.Hypokalemia likely 2/2 to diuresis- resolved 5. Hypothyroidism -C/w levothyroxine 6. TERESA -Nocturnal study shows no need for O2 nightly -CPAP nightly 7. Asthma -Not currently in exacerbation -C/w home meds DISPOSITION: Discharge home with f/u with PCP within 1-2 weeks. TIME SPENT ON DISCHARGE: Greater than 30 minutes. Vital Signs/I&Os Vital Signs Date Time Temp Pulse Resp B/P (MAP) Pulse Ox O2 Delivery O2 Flow Rate FiO2 01/10/20 08:27 95 132/70 01/10/20 06:00 98.2 19 92 Room Air 01/09/20 21:00 2.0 I&O- Last 24 Hours up to 6 AM 01/10/20 06:00 Intake Total 600 ml Output Total 2250 ml Balance -1650 ml Laboratory Data Labs 24H Laboratory Tests 2 01/09/20 20:59: Bedside Glucose (Misc Panel) 137H 01/10/20 06:20: Bedside Glucose (Misc Panel) 112 01/10/20 06:30: Nucleated Red Blood Cells % (auto) 0.0, Anion Gap 4L, Glomerular Filtration Rate > 60.0, Calcium Level 9.1, Total Bilirubin 1.0#, Aspartate Amino Transf (AST/SGOT) 24, Alanine Aminotransferase (ALT/SGPT) 47, Alkaline Phosphatase 55, Total Protein 6.7, Albumin 3.3, Albumin/Globulin Ratio 1.0L CBC/BMP Laboratory Tests 01/10/20 06:30 FSBS Laboratory Tests Test 01/09/20 20:59 01/10/20 06:20 Range/Units Bedside Glucose (Misc Panel) 137 112 80-115 MG/DL Microbiology Microbiology 01/07/20 Gram Stain - Final, Complete 01/07/20 Sputum Culture - Final, Complete Yeast Like Organism 01/04/20 Urine Culture - Final, Complete 01/04/20 Respiratory Virus Panel (PCR) (DOMENICA) - Final, Complete 01/04/20 Blood Culture - Final, Complete NO GROWTH AFTER 5 DAYS Discharge Medications Scheduled Bisoprolol Fumarate (Bisoprolol Fumarate) 5 Mg Tablet, 5 MG PO DAILY, (Reported) Calcium Carbonate (Calcium) 600 Mg Tab, 1,200 MG PO DAILY, (Reported) Cefuroxime Axetil (Cefuroxime) 500 Mg Tablet, 500 MG PO BID Cetirizine HCl (ZyrTEC) 10 Mg Capsule, 10 MG PO DAILY, (Reported) Cholecalciferol (Vitamin D3) (Vitamin D3) 50 Mcg Tablet, 50 MCG PO DAILY, (Reported) Cyanocobalamin (Vitamin B-12) (Vitamin B-12) 500 Mcg Tablet, 500 MCG PO DAILY, (Reported) Doxycycline Monohydrate (Doxycycline) 100 Mg Capsule, 100 MG PO BID Fluticasone/Umeclidin/Vilanter (Trelegy Ellipta 100-62.5-25) 1 Each Blst.w.dev, 1 PUFF PO DAILY, (Reported) Levothyroxine Sodium (Levothyroxine Sodium) 50 Mcg Tab, 50 MCG PO DAILY, (Reported) Magnesium Chloride (Slow-Mag) 71.5 Mg Tablet.dr, 71.5 MG PO DAILY, (Reported) @ NOON Magnesium Oxide (Magnesium) 400 Mg Cap, 800 MG PO BID, (Reported) Montelukast Sodium (Singulair) 10 Mg Tablet, 10 MG PO DAILY, (Reported) Montelukast Sodium (Montelukast Sodium) 10 Mg Tablet, 10 MG PO QHS, (Reported) Multivitamin (Multivitamins) 1 Each Tablet, 2 TAB PO DAILY, (Reported) Simvastatin (Simvastatin) 10 Mg Tab, 10 MG PO DAILY, (Reported) Allergies Coded Allergies: Sulfa (Sulfonamide Antibiotics) (Verified Allergy, Intermediate, RASH, 04/25/19) streptomycin (Verified Allergy, Intermediate, RASH, 04/25/19) hydrochlorothiazide (Verified Allergy, Unknown, HYPOTENSION, ELEVATED TEMP, 04/25/19) Odilia Schilling MD Jan 10, 2020 20:06
[2020-01-10] MEDS ORDERED: LASI20TA3 PO (20:10)
== END 2020-01-10 13:00 | disposition home or self-care (01) | DRG 139 ==
LOC: M ED 09:25 → M ED INP 12:57 → ENRESERV 13:19 → M MSPAV 14:54
PROVIDERS: ADMIT Internal Medicine; ATTEND Internal Medicine
DX: J18.9 Pneumonia, unspecified organism (principal); I10 Essential (primary) hypertension; J45.909 Unspecified asthma, uncomplicated; Z79.899 Other long term (current) drug therapy; Z88.2 Allergy status to sulfonamides; Z88.8 Allergy status to other drugs, medicaments and biological substances; E11.9 Type 2 diabetes mellitus without complications; G47.33 Obstructive sleep apnea (adult) (pediatric); L40.8 Other psoriasis; E87.6 Hypokalemia

== ENCOUNTER → 2020-01-27 | Outpatient (REF) | payer OTHER ==
[~2020-01-27] MED LIST changes: +BISO5TAB14 PO; +CEFU50TA PO; +CETI10CA2 PO; +DOXY-350 PO; +LASI20TA3 PO; +MONT10TA4 PO; +MULTTAB61 PO; +NITR100C2 PO; +SING10TA32 PO; +SLOWTAB2 PO; +TREL1AER PO; +VITA500T40 PO; +ZYRTTAB8 PO
[2020-03-04 09:55] LABS: IgG Subclass 1 SEE SEPARATE REPORT mg/dl
[2020-03-10 10:19] LABS: IMMUNOGLOBULIN G 815 MG/DL (681-1648); IMMUNOGLOBULIN M 20.7 MG/DL (40-230)
== END ==
LOC: M LABDRWAD 16:28
PROVIDERS: ATTEND Internal Medicine Pulmonary Disease
DX: J45.40 Moderate persistent asthma, uncomplicated (principal)

== ENCOUNTER → 2020-02-25 | Outpatient (CLI) | payer OTHER ==
--- NOTE | 2020-02-25 12:21 | REPMRS ---
Patient History The patient states she had a clinical breast exam in 2019. 3D TOMOSYNTHESIS WAS PERFORMED. The [facility] lifetime risk for breast cancer is 5.1%. SUSANNE Hays. Digital Woman Screen Mammo: February 25, 2020 - Exam #: [id number] Bilateral CC and MLO view(s) were taken. Technologist: Rolanda Garcia, Technologist Prior study comparison: January 23, 2019, bilateral digital woman screen mammo performed at [facility]. January 02, 2018, bilateral digital woman screen mammo performed at [facility]. FINDINGS: There are scattered fibroglandular densities. There is a fairly symmetric fibroglandular pattern in both breasts. There has been no interval development of masses, areas of architectural distortion or clusters of microcalcifications typical of malignancy. There are new small areas of fat necrosis medially and posteriorly in the right breast. Assessment: BI-RADS/ACR category 2 mammogram. Benign Findings. Recommendation Routine screening mammogram of both breasts in 1 year (for women over age 40). This mammogram was interpreted with the aid of an FDA-approved computer-aided dectection system. Electronically Signed By: Murtaza Crowe MD 02/25/20 [id number]
== END ==
LOC: M WHC 10:23
PROVIDERS: ATTEND Family Medicine
DX: Z12.31 Encounter for screening mammogram for malignant neoplasm of breast (principal)

== ENCOUNTER 2020-05-16 11:10 | Emergency (ER) | payer OTHER ==
[~2020-05-16] VITALS: Ht 157.5 cm; Wt 96.7 kg
[~2020-05-16 11:10] MED LIST changes: -MONT10TA4 PO; +MONT5TAB2 PO
[2020-05-16] MEDS ORDERED: MAPA500C PO (11:18)
[2020-05-16] MEDS ORDERED: NS 1,000 ML IV ONE (12:30)
[2020-05-16] MEDS ORDERED: cefTRIAXone SOD 1 GM in D5W MINI-BAG PLUS 50 ML IV ONE (12:30)
[2020-05-16 13:02] LABS: BASO % 0.3 % (0.0-1.0); EOS # 0.2 10^3/uL (0.0-0.5); EOS % 2.4 % (0.0-3.0); HEMATOCRIT 42.2 % (36.0-47.0); HEMOGLOBIN 13.5 g/dl (12.0-15.5); LYMPH # 0.1 10^3/uL (1.5-5.0); MEAN CORPUSCULAR VOLUME 87.6 fl (80.0-96.0); MONO # 0.4 10^3/uL (0.0-0.8); MONO % 5.5 % (0.0-5.0); NEUTROPHILS # 6.4 10^3/uL (1.5-8.5); NEUTROPHILS % 89.4 % (36.0-66.0); PLATELET COUNT, AUTOMATED 172 10^3/uL (150-450); RED BLOOD COUNT 4.82 10^6/uL (4.00-5.40); WHITE BLOOD COUNT 7.1 10^3/uL (4.0-10.0)
[2020-05-16 13:28] LABS: ALBUMIN 3.8 GM/DL (3.2-5.2); BILIRUBIN,DIRECT 0.2 MG/DL (0.0-0.2); BILIRUBIN,TOTAL 0.6 MG/DL (0.2-1.0); CALCIUM LEVEL 9.2 MG/DL (8.8-10.2); CREATININE FOR GFR 1.05 MG/DL (0.55-1.30); GLOMERULAR FILTRATION RATE 56.2 (>45); POTASSIUM SERUM 4.1 MEQ/L (3.5-5.1); TOTAL PROTEIN 7.1 GM/DL (6.4-8.2)
--- NOTE | 2020-05-16 14:10 | REP ---
INDICATION: cough, sob, fever COMPARISON: 01/09/2020 TECHNIQUE: Portable AP view of the chest FINDINGS: Stable cardiomegaly and diffuse chronic interstitial changes including linear bilateral lower lobe scarring. No obvious acute consolidation, definite effusion or pneumothorax. IMPRESSION: c <Electronically signed by Miguel Malagon > 05/16/20 [id number]
--- NOTE | 2020-05-16 14:19 | REP ---
INDICATION: right abd pain, dysuria. r/o stone COMPARISON: None TECHNIQUE: Axial noncontrast images from the lung bases to the pubic symphysis with coronal and sagittal reformations. This CT examination was performed using the following dose reduction techniques: Automated exposure control, adjustment of mA and/or kv according to the patient's size, and use of iterative reconstruction technique. FINDINGS: Lung bases demonstrate moderate scattered bibasilar atelectasis and linear infiltrates. Liver, spleen, pancreas, and bilateral adrenal glands are normal for noncontrast evaluation. Collapsed gallbladder with cholelithiasis noted. Kidneys demonstrate multiple bilateral nonobstructing intrarenal calculi measuring up to 10 mm along with left renal hypodensity likely representing cyst. No hydroureteronephrosis or obvious obstructing ureteral calculus noted. The enteric system is without obstruction or acute inflammatory process. Scattered colonic diverticula noted without acute diverticulitis. Evidence for prior gastric bypass surgery noted. Pelvis demonstrates collapsed normal bladder and evidence for prior hysterectomy. No ascites. No free air. No adenopathy. Abdominal aorta without aneurysm. Musculoskeletal structures demonstrate age-related changes without acute osseous abnormality. IMPRESSION: 1. Bibasilar atelectasis and linear consolidations. 2. Bilateral nephrolithiasis with renal stones measuring up to 10 mm along with left renal hypodensities suggesting cyst. No hydronephrosis or obstructing ureteral calculus. 3. Cholelithiasis. 4. No further acute abdominopelvic pathology appreciated. <Electronically signed by Miguel Malagon > 05/16/20 [id number]
[2020-05-16] MEDS ORDERED: CEFD1CAP8 PO (15:27)
[2020-05-16 15:46] VITALS: BP 159/94
--- NOTE | 2020-05-16 18:51 | ED PDOC ---
Post-Departure Follow-Up dr mello faxed formal report of ct abd/p for fu Philippe Medina MD May 16, 2020 18:51
== END 2020-05-16 15:48 | disposition home or self-care (01) ==
LOC: M ED 11:10
DX: N39.0 Urinary tract infection, site not specified (principal); Z98.84 Bariatric surgery status; Z87.442 Personal history of urinary calculi; E78.00 Pure hypercholesterolemia, unspecified; I10 Essential (primary) hypertension; J45.909 Unspecified asthma, uncomplicated; G47.30 Sleep apnea, unspecified; Z87.01 Personal history of pneumonia (recurrent); E03.9 Hypothyroidism, unspecified; E11.40 Type 2 diabetes mellitus with diabetic neuropathy, unspecified; K80.80 Other cholelithiasis without obstruction; I51.7 Cardiomegaly; Z79.899 Other long term (current) drug therapy; Z88.2 Allergy status to sulfonamides; Z88.8 Allergy status to other drugs, medicaments and biological substances; Z88.1 Allergy status to other antibiotic agents
CPT/HCPCS: 36415; 71045; 74176; 80048; 80076; 81001; 83605; 83880; 85025; 87086; 96365; 99284; J0696; U0002

== ENCOUNTER → 2021-03-30 | Outpatient (CLI) | payer MEDICARE ==
[~2021-03-30] MED LIST changes: +CEFD1CAP8 PO; +MAPA500C PO; +MONT10TA10 PO; -MONT5TAB2 PO; +OMEP40CA4 PO; -OMEP40CA97 PO
--- NOTE | 2021-03-30 16:59 | REPMRS ---
Patient History The patient states she has not had a clinical breast exam in over a year. Patient states no breast complaints today. Patient has signed MRS History Sheet. Digital Woman Screen Mammo: March 30, 2021 - Exam #: [id number] Bilateral CC and MLO view(s) were taken. Technologist: Faye Mace, Technologist Prior study comparison: February 25, 2020, bilateral digital woman screen mammo performed at [facility]. January 23, 2019, bilateral digital woman screen mammo performed at [facility]. January 02, 2018, bilateral digital woman screen mammo performed at [facility]. FINDINGS: There are scattered fibroglandular densities. The Volpara volumetric breast density category is:B. There has been no change in the appearance of the mammogram from the prior studies. There is a mild amount of scattered fibroglandular density which is fairly symmetric. There is no interval development of dominant mass, architectural distortion, or grouped microcalcification suggestive of malignancy. 3-D tomosynthesis shows no additional findings. Assessment: BI-RADS/ACR category 1 mammogram. Negative Mammogram. Recommendation Routine screening mammogram of both breasts in 1 year (for women over age 40). This patient's [facility] Lifetime Breast Cancer Risk is estimated at 4.9 %. This mammogram was interpreted with the aid of an FDA-approved computer-aided dectection system. Electronically Signed By: Elvis Duron MD 03/30/21 [id number]
== END ==
LOC: M WHC 16:15
PROVIDERS: ATTEND Family Medicine
DX: Z12.31 Encounter for screening mammogram for malignant neoplasm of breast (principal)

== ENCOUNTER → 2021-08-08 | Outpatient (CLI) | payer MEDICARE ==
[~2021-08-08] MED LIST changes: -CEFD1CAP8 PO; +CEFD300C41 PO; -MONT10TA10 PO; +MONT10TA97 PO
== END ==
LOC: M WHC 08:51
PROVIDERS: ATTEND Family Medicine
DX: M85.88 Other specified disorders of bone density and structure, other site (principal)

== ENCOUNTER → 2021-11-30 | Outpatient (REF) | payer MEDICARE ==
[2021-11-30 17:41] LABS: APPEARANCE, URINE CLOUDY (CLEAR); BACTERIA, URINE AUTO NEGATIVE (NEGATIVE); BILIRUBIN, URINE AUTO NEGATIVE (NEGATIVE); BLOOD, URINE BLOOD NEGATIVE (NEGATIVE); COLOR, URINE YELLOW (YELLOW); GLUCOSE, URINE (UA) AUTO NEGATIVE (NEGATIVE); KETONE, URINE AUTO NEGATIVE (NEGATIVE); LEUKOCYTE ESTERASE, URINE AUTO 3+ (NEGATIVE); NITRITE, URINE AUTO NEGATIVE (NEGATIVE); PROTEIN, URINE AUTO NEGATIVE (NEGATIVE); RBC, URINE AUTO 3 /HPF (0-3); SPECIFIC GRAVITY URINE AUTO 1.014 (1.002-1.035); SQUAMOUS EPITHELIAL CELL UR AU 0 /HPF (0-6); UROBILINOGEN, URINE AUTO 0.2 mg/dL (0.0-2.0); WBC, URINE AUTO 55 /HPF (0-3)
== END ==
LOC: M SMT 16:46
PROVIDERS: ATTEND Urology
DX: N39.0 Urinary tract infection, site not specified (principal)

== ENCOUNTER 2021-12-07 08:30 | Emergency (ER) | payer MEDICARE ==
[~2021-12-07] VITALS: Ht 154.9 cm; Wt 98.9 kg
[2021-12-07] MEDS ORDERED: BACT800T5 PO (08:42)
[2021-12-07] MEDS ORDERED: METF-839 PO (08:42)
[2021-12-07] MEDS ORDERED: NS 1,000 ML IV ONE (09:30)
[2021-12-07] MEDS ORDERED: KETOROLAC 30 MG/ML 1ML VIAL IV ONE (09:30)
[2021-12-07 09:36] LABS: BASO % 0.3 % (0.0-1.0); EOS # 0.3 10^3/uL (0.0-0.5); EOS % 3.7 % (0.0-3.0); HEMATOCRIT 39.6 % (36.0-47.0); HEMOGLOBIN 13.1 g/dl (12.0-15.5); LYMPH # 0.2 10^3/uL (1.5-5.0); LYMPH % 2.3 % (24.0-44.0); MEAN CORPUSCULAR HEMOGLOBIN 28.5 pg (27.0-33.0); MEAN CORPUSCULAR HGB CONC 33.1 g/dl (32.0-36.5); MEAN CORPUSCULAR VOLUME 86.3 fl (80.0-96.0); MONO # 0.6 10^3/uL (0.0-0.8); NEUTROPHILS % 84.3 % (36.0-66.0); PLATELET COUNT, AUTOMATED 164 10^3/uL (150-450); RED BLOOD COUNT 4.59 10^6/uL (4.00-5.40); WHITE BLOOD COUNT 7.1 10^3/uL (4.0-10.0)
[2021-12-07 10:08] LABS: ALBUMIN 3.5 GM/DL (3.2-5.2); ALT/SGPT 103 U/L (12-78); BILIRUBIN,DIRECT 0.6 MG/DL (0.0-0.2); BILIRUBIN,TOTAL 0.9 MG/DL (0.2-1.0); BLOOD UREA NITROGEN 13 MG/DL (7-18); CALCIUM LEVEL 8.6 MG/DL (8.8-10.2); CARBON DIOXIDE LEVEL 26 MEQ/L (21-32); CHLORIDE LEVEL 107 MEQ/L (98-107); CREATININE FOR GFR 1.06 MG/DL (0.55-1.30); GLOMERULAR FILTRATION RATE 55.2 (>45); GLUCOSE, FASTING 168 MG/DL (70-100); LIPASE 101 U/L (73-393); POTASSIUM SERUM 4.5 MEQ/L (3.5-5.1); SODIUM LEVEL 136 MEQ/L (136-145)
[2021-12-07] MEDS ORDERED: ISOVUE-370 76% 100ML VIAL As Ordered ONE (10:20)
[2021-12-07 13:51] VITALS: BP 121/88
[2021-12-07] MEDS ORDERED: FOSFOMYCIN TROMETHAMINE 3 GM POWDER PACKET (MONUROL) PO ONE (13:55)
[2021-12-07 14:48] LABS: MONO REFLEX EBV VCA IgM NEGATIVE (NEGATIVE)
[2021-12-07 15:06] LABS: HEPATITIS B SURFACE ANTIGEN NEGATIVE (NEGATIVE)
[2021-12-07 15:33] LABS: HEPATITIS B CORE ANTIBODY IGM NEGATIVE (NEGATIVE); HEPATITIS C VIRUS ABY INDEX 0.1 INDEX (<0.8)
== END 2021-12-07 15:33 | disposition home or self-care (01) ==
LOC: M ED 08:30
DX: N39.0 Urinary tract infection, site not specified (principal); R94.5 Abnormal results of liver function studies; E11.9 Type 2 diabetes mellitus without complications; I10 Essential (primary) hypertension; J45.909 Unspecified asthma, uncomplicated; G47.33 Obstructive sleep apnea (adult) (pediatric); E03.9 Hypothyroidism, unspecified; Z98.84 Bariatric surgery status; K76.0 Fatty (change of) liver, not elsewhere classified; N20.0 Calculus of kidney; Z79.890 Hormone replacement therapy; Z79.899 Other long term (current) drug therapy; Z88.2 Allergy status to sulfonamides; Z88.8 Allergy status to other drugs, medicaments and biological substances; Z79.84 Long term (current) use of oral hypoglycemic drugs
CPT/HCPCS: 71045; 74177; 76705; 80048; 80076; 81001; 83605; 83690; 85025; 86308; 86665; 86705; 86709; 86803; 87040; 87086; 87340; 87486; 87581; 87633; 87798; 93005; 96361; 96374; 99284; J1885; Q9967

== ENCOUNTER 2021-12-09 16:10 | Inpatient (IN) | payer MEDICARE ==
[~2021-12-09] VITALS: Ht 154.9 cm; Wt 99.8 kg
[~2021-12-09 16:10] MED LIST changes: +BACT800T5 PO; +METF-839 PO
[2021-12-09 19:02] LABS: BASO % 0.5 % (0.0-1.0); EOS # 0.3 10^3/uL (0.0-0.5); EOS % 4.5 % (0.0-3.0); HEMATOCRIT 38.6 % (36.0-47.0); HEMOGLOBIN 12.5 g/dl (12.0-15.5); LYMPH # 0.9 10^3/uL (1.5-5.0); LYMPH % 14.4 % (24.0-44.0); MEAN CORPUSCULAR HGB CONC 32.4 g/dl (32.0-36.5); MEAN CORPUSCULAR VOLUME 86.4 fl (80.0-96.0); MONO # 0.6 10^3/uL (0.0-0.8); MONO % 9.7 % (2.0-8.0); NEUTROPHILS # 4.5 10^3/uL (1.5-8.5); NEUTROPHILS % 70.3 % (36.0-66.0); PLATELET COUNT, AUTOMATED 197 10^3/uL (150-450); RED BLOOD COUNT 4.47 10^6/uL (4.00-5.40); WHITE BLOOD COUNT 6.4 10^3/uL (4.0-10.0)
[2021-12-09 19:14] LABS: INR 0.99; PROTHROMBIN TIME 13.5 SECONDS (12.7-14.5)
[2021-12-09 19:15] LABS: PARTIAL THROMBOPLASTIN TIME 34.9 SECONDS (25.9-37.0)
[2021-12-09] MEDS ORDERED: ACETAMINOPHEN TAB 650MG DOSE (2X325MG) PO ONE (19:20)
[2021-12-09 19:24] LABS: ALBUMIN 3.3 GM/DL (3.2-5.2); ALT/SGPT 81 U/L (12-78); BILIRUBIN,DIRECT 0.3 MG/DL (0.0-0.2); BILIRUBIN,TOTAL 0.7 MG/DL (0.2-1.0); BLOOD UREA NITROGEN 10 MG/DL (7-18); CALCIUM LEVEL 9.2 MG/DL (8.8-10.2); CARBON DIOXIDE LEVEL 26 MEQ/L (21-32); CHLORIDE LEVEL 105 MEQ/L (98-107); CREATININE FOR GFR 0.81 MG/DL (0.55-1.30); GLOMERULAR FILTRATION RATE > 60.0 (>45); GLUCOSE, FASTING 122 MG/DL (70-100); POTASSIUM SERUM 4.1 MEQ/L (3.5-5.1); SODIUM LEVEL 139 MEQ/L (136-145); TOTAL PROTEIN 6.9 GM/DL (6.4-8.2)
[2021-12-09] MEDS ORDERED: ceFAZolin SOD 1 GM in D5W MINI-BAG PLUS 50 ML IV ONE (21:40)
[2021-12-09] MEDS ORDERED: METF-838 PO (22:12)
[2021-12-09] MEDS ORDERED: SIMV10TA21 PO (22:12)
[2021-12-09] MEDS ORDERED: AZEL0.055 NARES (22:12)
[2021-12-09] MEDS ORDERED: HOME MED LIST COMPLETE! XX SCH (22:15)
[2021-12-09] MEDS ORDERED: ACETAMINOPHEN TAB 650MG DOSE (2X325MG) PO PRN (22:40)
[2021-12-09] MEDS ORDERED: GLUCAGON INJ 1MG VIAL SC PRN (22:40)
[2021-12-09] MEDS ORDERED: DEXTROSE 50% 50 ML SYRINGE IV PRN (22:40)
[2021-12-09] MEDS ORDERED: GLUCOSE 4GM CHEW TABLET PO PRN (22:40)
[2021-12-09 23:28] LABS: LIPASE 128 U/L (73-393)
[2021-12-10] MEDS: MONTELUKAST 10 MG TAB PO SCH ×2 (00:49→20:16)
[2021-12-10] MEDS: SIMVASTATIN 10 MG TAB PO SCH ×2 (00:49→20:16)
[2021-12-10 01:45] VITALS: BP 140/75
[2021-12-10] MEDS: DOXYCYCLINE HYCLATE 100 MG in D5W MINI-BAG PLUS 100 ML IV SCH ×2 (02:02→13:21)
[2021-12-10] MEDS ORDERED: diphenhydrAMINE 25MG CAP PO PRN (02:50)
[2021-12-10] MEDS: cefTRIAXone SOD 1 GM in D5W MINI-BAG PLUS 50 ML IV SCH (03:05)
[2021-12-10] MEDS: LEVOTHYROXINE 50MCG TABLET (0.05MG) PO SCH (05:58)
[2021-12-10 06:00] VITALS: BP 136/69
[2021-12-10] MEDS ORDERED: ceFAZolin SOD 1 GM in D5W MINI-BAG PLUS 50 ML IV SCH (06:00)
[2021-12-10] MEDS ORDERED: ceFAZolin SOD 2 GM in IV 1 EA IV SCH (06:00)
[2021-12-10 06:24] LABS: HEMATOCRIT 37.2 % (36.0-47.0); MEAN CORPUSCULAR HEMOGLOBIN 28.2 pg (27.0-33.0); MEAN CORPUSCULAR HGB CONC 32.3 g/dl (32.0-36.5); MEAN CORPUSCULAR VOLUME 87.3 fl (80.0-96.0); PLATELET COUNT, AUTOMATED 165 10^3/uL (150-450); RED BLOOD COUNT 4.26 10^6/uL (4.00-5.40); WHITE BLOOD COUNT 4.7 10^3/uL (4.0-10.0)
[2021-12-10 06:41] LABS: HEMOGLOBIN A1c 6.9 %
[2021-12-10 06:57] LABS: ALBUMIN 2.9 GM/DL (3.2-5.2); ALT/SGPT 67 U/L (12-78); BILIRUBIN,TOTAL 0.6 MG/DL (0.2-1.0); BLOOD UREA NITROGEN 10 MG/DL (7-18); CALCIUM LEVEL 8.9 MG/DL (8.8-10.2); CARBON DIOXIDE LEVEL 24 MEQ/L (21-32); CHLORIDE LEVEL 106 MEQ/L (98-107); CREATININE FOR GFR 0.74 MG/DL (0.55-1.30); GLOMERULAR FILTRATION RATE > 60.0 (>45); GLUCOSE, FASTING 167 MG/DL (70-100); MAGNESIUM LEVEL 1.9 MG/DL (1.8-2.4); POTASSIUM SERUM 3.7 MEQ/L (3.5-5.1); SODIUM LEVEL 138 MEQ/L (136-145); TOTAL PROTEIN 6.7 GM/DL (6.4-8.2)
[2021-12-10] MEDS: LACTOBACILLUS ACIDOPHILUS CAP (BACID) PO SCH (09:55)
[2021-12-10] MEDS: CYANOCOBALAMIN 500 MCG TAB PO SCH (09:55)
[2021-12-10] MEDS: bisoproloL fumarate 5 MG TAB PO SCH (09:59)
[2021-12-10] MEDS: INSULIN LISPRO (NovoLOG) PER UNIT SC SCH ×4 (10:00→21:00)
[2021-12-10] MEDS: ENOXAPARIN 40MG/0.4ML SYRINGE (J1650 PER 10MG) SC SCH (10:00)
[2021-12-10] MEDS: CETIRIZINE (ZyrTEC) 10 MG TAB PO SCH (11:23)
[2021-12-10] MEDS: ACETAMINOPHEN TAB 650MG DOSE (2X325MG) PO PRN ×2 (13:50→22:12)
[2021-12-10 14:00] VITALS: BP 122/59
[2021-12-10] MEDS: TIOTROPIUM INHALER/CAPSULE (SPIRIVA) INH SCH (15:11)
[2021-12-10] MEDS: SYMBICORT 160/4.5MCG INHALER 6GM INH SCH ×2 (15:11→19:59)
[2021-12-10 22:00] VITALS: BP 126/70
[2021-12-11] MEDS: DOXYCYCLINE HYCLATE 100 MG in D5W MINI-BAG PLUS 100 ML IV SCH ×2 (00:18→12:26)
[2021-12-11] MEDS: cefTRIAXone SOD 1 GM in D5W MINI-BAG PLUS 50 ML IV SCH (01:27)
[2021-12-11] MEDS: LEVOTHYROXINE 50MCG TABLET (0.05MG) PO SCH (05:16)
[2021-12-11 06:00] VITALS: BP 112/57
[2021-12-11 06:09] LABS: HEMATOCRIT 34.1 % (36.0-47.0); MEAN CORPUSCULAR HEMOGLOBIN 28.6 pg (27.0-33.0); MEAN CORPUSCULAR HGB CONC 32.3 g/dl (32.0-36.5); MEAN CORPUSCULAR VOLUME 88.6 fl (80.0-96.0); PLATELET COUNT, AUTOMATED 178 10^3/uL (150-450); RED BLOOD COUNT 3.85 10^6/uL (4.00-5.40); WHITE BLOOD COUNT 4.2 10^3/uL (4.0-10.0)
[2021-12-11 06:40] LABS: BLOOD UREA NITROGEN 9 MG/DL (7-18); C REACTIVE PROTEIN QUANTITATIV 4.12 MG/DL (0.00-0.30); CALCIUM LEVEL 8.1 MG/DL (8.8-10.2); CARBON DIOXIDE LEVEL 25 MEQ/L (21-32); CHLORIDE LEVEL 109 MEQ/L (98-107); CREATININE FOR GFR 0.65 MG/DL (0.55-1.30); GLOMERULAR FILTRATION RATE > 60.0 (>45); GLUCOSE, FASTING 130 MG/DL (70-100); POTASSIUM SERUM 3.5 MEQ/L (3.5-5.1); SODIUM LEVEL 141 MEQ/L (136-145)
[2021-12-11] MEDS: CETIRIZINE (ZyrTEC) 10 MG TAB PO SCH (07:37)
[2021-12-11] MEDS: LACTOBACILLUS ACIDOPHILUS CAP (BACID) PO SCH (07:37)
[2021-12-11] MEDS: CYANOCOBALAMIN 500 MCG TAB PO SCH (07:37)
[2021-12-11] MEDS: ENOXAPARIN 40MG/0.4ML SYRINGE (J1650 PER 10MG) SC SCH (07:40)
[2021-12-11] MEDS: bisoproloL fumarate 5 MG TAB PO SCH (07:40)
[2021-12-11] MEDS: INSULIN LISPRO (NovoLOG) PER UNIT SC SCH ×4 (07:40→21:00)
[2021-12-11] MEDS: SYMBICORT 160/4.5MCG INHALER 6GM INH SCH ×2 (07:49→20:09)
[2021-12-11] MEDS: TIOTROPIUM INHALER/CAPSULE (SPIRIVA) INH SCH (07:49)
[2021-12-11 14:00] VITALS: BP 133/64
[2021-12-11] MEDS: SIMVASTATIN 10 MG TAB PO SCH (20:38)
[2021-12-11] MEDS: MONTELUKAST 10 MG TAB PO SCH (20:38)
[2021-12-11 21:52] VITALS: BP 134/64
[2021-12-12] MEDS: DOXYCYCLINE HYCLATE 100 MG in D5W MINI-BAG PLUS 100 ML IV SCH (00:52)
[2021-12-12] MEDS: cefTRIAXone SOD 1 GM in D5W MINI-BAG PLUS 50 ML IV SCH (03:22)
[2021-12-12] MEDS: LEVOTHYROXINE 50MCG TABLET (0.05MG) PO SCH (05:55)
[2021-12-12 06:00] VITALS: BP 129/64
[2021-12-12 06:50] LABS: HEMATOCRIT 34.5 % (36.0-47.0); HEMOGLOBIN 11.1 g/dl (12.0-15.5); MEAN CORPUSCULAR HEMOGLOBIN 28.8 pg (27.0-33.0); MEAN CORPUSCULAR HGB CONC 32.2 g/dl (32.0-36.5); MEAN CORPUSCULAR VOLUME 89.6 fl (80.0-96.0); PLATELET COUNT, AUTOMATED 212 10^3/uL (150-450); RED BLOOD COUNT 3.85 10^6/uL (4.00-5.40); WHITE BLOOD COUNT 4.8 10^3/uL (4.0-10.0)
[2021-12-12 07:04] LABS: BLOOD UREA NITROGEN 8 MG/DL (7-18); CALCIUM LEVEL 8.5 MG/DL (8.8-10.2); CARBON DIOXIDE LEVEL 27 MEQ/L (21-32); CHLORIDE LEVEL 109 MEQ/L (98-107); CREATININE FOR GFR 0.62 MG/DL (0.55-1.30); GLOMERULAR FILTRATION RATE > 60.0 (>45); GLUCOSE, FASTING 145 MG/DL (70-100); POTASSIUM SERUM 3.9 MEQ/L (3.5-5.1); SODIUM LEVEL 144 MEQ/L (136-145)
[2021-12-12] MEDS: TIOTROPIUM INHALER/CAPSULE (SPIRIVA) INH SCH (07:22)
[2021-12-12] MEDS: SYMBICORT 160/4.5MCG INHALER 6GM INH SCH (07:23)
[2021-12-12] MEDS: ENOXAPARIN 40MG/0.4ML SYRINGE (J1650 PER 10MG) SC SCH (08:16)
[2021-12-12] MEDS: INSULIN LISPRO (NovoLOG) PER UNIT SC SCH (08:16)
[2021-12-12 08:17] VITALS: BP 129/64
[2021-12-12] MEDS: CYANOCOBALAMIN 500 MCG TAB PO SCH (08:17)
[2021-12-12] MEDS: LACTOBACILLUS ACIDOPHILUS CAP (BACID) PO SCH (08:17)
[2021-12-12] MEDS: bisoproloL fumarate 5 MG TAB PO SCH (08:17)
[2021-12-12] MEDS: CETIRIZINE (ZyrTEC) 10 MG TAB PO SCH (08:17)
[2021-12-12] MEDS ORDERED: CEFD300C41 PO (09:49)
[2021-12-12] MEDS ORDERED: DOXY100C3 PO (09:49)
== END 2021-12-12 11:55 | disposition home or self-care (01) | DRG 602 ==
LOC: M ED 16:10 → M ED INP 22:36 → ENRESERV 12-10 00:12 → M MS5PR 12-10 01:40
PROVIDERS: ADMIT Internal Medicine; ATTEND Internal Medicine
DX: L03.115 Cellulitis of right lower limb (principal); J18.9 Pneumonia, unspecified organism; N39.0 Urinary tract infection, site not specified; Z68.41 Body mass index [BMI] 40.0-44.9, adult; J90 Pleural effusion, not elsewhere classified; A46 Erysipelas; L03.116 Cellulitis of left lower limb; E11.9 Type 2 diabetes mellitus without complications; I10 Essential (primary) hypertension; J45.909 Unspecified asthma, uncomplicated; G47.33 Obstructive sleep apnea (adult) (pediatric); E03.9 Hypothyroidism, unspecified; Z98.84 Bariatric surgery status; Z79.890 Hormone replacement therapy; Z79.899 Other long term (current) drug therapy; Z88.2 Allergy status to sulfonamides; Z88.8 Allergy status to other drugs, medicaments and biological substances; Z79.84 Long term (current) use of oral hypoglycemic drugs; Z20.822 Contact with and (suspected) exposure to COVID-19; E66.9 Obesity, unspecified

== ENCOUNTER → 2021-12-23 | Outpatient (REF) | payer MEDICARE ==
[~2021-12-23] MED LIST changes: +AZEL0.055 NARES; +DOXY100C3 PO; +METF-838 PO
== END ==
LOC: M LAB REF 16:46
PROVIDERS: ATTEND Physician Assistant Medical
DX: H05.013 Cellulitis of bilateral orbits (principal)

== ENCOUNTER → 2022-01-16 | Outpatient (REF) | payer MEDICARE ==
[~2022-01-16] MED LIST changes: +CEPH500C PO; +NITR100C2
== END ==
LOC: M LAB REF 15:44
PROVIDERS: ATTEND Physician Assistant
DX: N39.0 Urinary tract infection, site not specified (principal)

== ENCOUNTER 2022-01-17 13:09 | Emergency (ER) | payer MEDICARE ==
[~2022-01-17] VITALS: Ht 154.9 cm; Wt 98.2 kg
[~2022-01-17 13:09] MED LIST changes: -CEPH500C PO; -NITR100C2
[2022-01-17] MEDS ORDERED: NITR100C2 (13:25)
[2022-01-17 14:56] LABS: BASO % 0.3 % (0.0-1.0); EOS # 0.1 10^3/uL (0.0-0.5); EOS % 1.5 % (0.0-3.0); HEMATOCRIT 37.9 % (36.0-47.0); HEMOGLOBIN 12.5 g/dl (12.0-15.5); LYMPH # 0.1 10^3/uL (1.5-5.0); LYMPH % 0.8 % (24.0-44.0); MEAN CORPUSCULAR HEMOGLOBIN 28.9 pg (27.0-33.0); MEAN CORPUSCULAR VOLUME 87.7 fl (80.0-96.0); MONO # 0.4 10^3/uL (0.0-0.8); MONO % 4.9 % (2.0-8.0); NEUTROPHILS # 6.9 10^3/uL (1.5-8.5); PLATELET COUNT, AUTOMATED 174 10^3/uL (150-450); RED BLOOD COUNT 4.32 10^6/uL (4.00-5.40); WHITE BLOOD COUNT 7.5 10^3/uL (4.0-10.0)
[2022-01-17 15:31] LABS: CALCIUM LEVEL 9.9 MG/DL (8.8-10.2); CREATININE FOR GFR 1.12 MG/DL (0.55-1.30); GLOMERULAR FILTRATION RATE 51.8 (>45); POTASSIUM SERUM 4.2 MEQ/L (3.5-5.1)
[2022-01-17] MEDS ORDERED: cefTRIAXone SOD 2 GM in D5W MINI-BAG PLUS 50 ML IV ONE (16:20)
[2022-01-17] MEDS ORDERED: IBUPROFEN 600MG TAB PO ONE (16:20)
[2022-01-17] MEDS ORDERED: ISOVUE-370 76% 100ML VIAL As Ordered ONE (16:41)
[2022-01-17 18:15] VITALS: BP 105/54
[2022-01-17] MEDS ORDERED: CEPH500C PO (18:23)
== END 2022-01-17 19:37 | disposition home or self-care (01) ==
LOC: M ED 13:09
DX: N39.0 Urinary tract infection, site not specified (principal); N20.0 Calculus of kidney; I51.7 Cardiomegaly; I10 Essential (primary) hypertension; J45.909 Unspecified asthma, uncomplicated; G47.33 Obstructive sleep apnea (adult) (pediatric); Z87.448 Personal history of other diseases of urinary system; Z87.442 Personal history of urinary calculi; Z98.84 Bariatric surgery status; Z79.890 Hormone replacement therapy; Z79.84 Long term (current) use of oral hypoglycemic drugs; Z79.899 Other long term (current) drug therapy; Z88.2 Allergy status to sulfonamides; Z88.1 Allergy status to other antibiotic agents; Z88.8 Allergy status to other drugs, medicaments and biological substances
CPT/HCPCS: 71045; 74177; 80048; 81001; 83605; 85025; 87040; 87086; 87486; 87581; 87633; 87798; 96365; 96366; 99284; J0696; Q9967

== ENCOUNTER → 2022-01-17 | Outpatient (CLI) | payer MEDICARE | LOC: M RAD 11:26 | PROVIDERS: ATTEND Physician Assistant Medical | DX: I70.203 Unspecified atherosclerosis of native arteries of extremities, bilateral legs (principal) ==

== ENCOUNTER 2022-02-14 09:30 | Emergency (ER) | payer MEDICARE ==
[~2022-02-14] VITALS: Ht 154.9 cm; Wt 97.7 kg
[~2022-02-14 09:30] MED LIST changes: +CEPH500C PO; +NITR100C2
[2022-02-14] MEDS ORDERED: NITR100C2 PO (09:38)
[2022-02-14 11:20] LABS: RSV AMPLIFICATION NEGATIVE (NEGATIVE)
[2022-02-14 12:07] LABS: BASO % 0.3 % (0.0-1.0); EOS # 0.1 10^3/uL (0.0-0.5); EOS % 0.7 % (0.0-3.0); HEMATOCRIT 39.8 % (36.0-47.0); HEMOGLOBIN 12.7 g/dl (12.0-15.5); LYMPH # 0.4 10^3/uL (1.5-5.0); LYMPH % 3.3 % (24.0-44.0); MEAN CORPUSCULAR HEMOGLOBIN 27.9 pg (27.0-33.0); MEAN CORPUSCULAR HGB CONC 31.9 g/dl (32.0-36.5); MEAN CORPUSCULAR VOLUME 87.3 fl (80.0-96.0); MONO # 0.5 10^3/uL (0.0-0.8); MONO % 4.2 % (2.0-8.0); NEUTROPHILS # 9.7 10^3/uL (1.5-8.5); NEUTROPHILS % 90.8 % (36.0-66.0); PLATELET COUNT, AUTOMATED 208 10^3/uL (150-450); RED BLOOD COUNT 4.56 10^6/uL (4.00-5.40); WHITE BLOOD COUNT 10.7 10^3/uL (4.0-10.0)
[2022-02-14 12:31] LABS: AMORPHOUS SEDIMENT, URINE SMALL AMOUNT (NEGATIVE); BACTERIA, URINE SMALL AMOUNT; HYALINE CAST, URINE NONE SEEN /lpf (0-1); MUCUS, URINE SMALL AMOUNT (NEGATIVE); RBC, URINE NONE SEEN /hpf (0-3); SQUAMOUS EPITHELIAL CELL URINE SMALL AMOUNT /hpf (SMALL AMT)
[2022-02-14 12:39] LABS: ALBUMIN 3.6 GM/DL (3.2-5.2); BILIRUBIN,DIRECT 0.2 MG/DL (0.0-0.2); BILIRUBIN,TOTAL 0.8 MG/DL (0.2-1.0); CREATININE FOR GFR 1.09 MG/DL (0.55-1.30); GLOMERULAR FILTRATION RATE 53.5 (>45); POTASSIUM SERUM 4.4 MEQ/L (3.5-5.1); TOTAL PROTEIN 6.8 GM/DL (6.4-8.2)
[2022-02-14] MEDS ORDERED: NS 1,000 ML IV ONE ×2 (12:50→16:30)
[2022-02-14] MEDS ORDERED: cefTRIAXone SOD 1 GM in D5W MINI-BAG PLUS 50 ML IV ONE (12:50)
[2022-02-14] MEDS ORDERED: ISOVUE-370 76% 100ML VIAL As Ordered ONE (13:22)
[2022-02-14 18:10] VITALS: BP 134/69
== END 2022-02-14 18:52 | disposition home or self-care (01) ==
LOC: M ED 09:30
DX: N10 Acute pyelonephritis (principal); E11.9 Type 2 diabetes mellitus without complications; I10 Essential (primary) hypertension; E78.5 Hyperlipidemia, unspecified; J45.909 Unspecified asthma, uncomplicated; G47.33 Obstructive sleep apnea (adult) (pediatric); E03.9 Hypothyroidism, unspecified; Z98.84 Bariatric surgery status; Z87.442 Personal history of urinary calculi; R16.2 Hepatomegaly with splenomegaly, not elsewhere classified; R91.8 Other nonspecific abnormal finding of lung field; Z79.890 Hormone replacement therapy; Z79.84 Long term (current) use of oral hypoglycemic drugs; Z79.899 Other long term (current) drug therapy; Z88.2 Allergy status to sulfonamides; Z88.8 Allergy status to other drugs, medicaments and biological substances; Z88.1 Allergy status to other antibiotic agents
CPT/HCPCS: 71046; 74177; 80048; 80076; 81000; 81015; 83605; 83690; 85025; 87040; 87086; 87631; 96361; 96365; 96366; 99284; J0696; Q9967

== ENCOUNTER 2022-02-16 09:05 | Observation (INO) | payer MEDICARE ==
[~2022-02-16] VITALS: Ht 154.9 cm; Wt 92.9 kg
[2022-02-16] MEDS ORDERED: ACET-683 PO (09:19)
[2022-02-16] MEDS ORDERED: NS 500 ML IV ONE (11:15)
[2022-02-16] MEDS ORDERED: ISOVUE-370 76% 100ML VIAL As Ordered ONE (11:54)
[2022-02-16 12:07] LABS: BASO % 0.3 % (0.0-1.0); EOS # 0.2 10^3/uL (0.0-0.5); EOS % 2.5 % (0.0-3.0); HEMATOCRIT 36.7 % (36.0-47.0); HEMOGLOBIN 11.8 g/dl (12.0-15.5); LYMPH # 0.3 10^3/uL (1.5-5.0); LYMPH % 3.6 % (24.0-44.0); MEAN CORPUSCULAR HEMOGLOBIN 27.8 pg (27.0-33.0); MEAN CORPUSCULAR HGB CONC 32.2 g/dl (32.0-36.5); MEAN CORPUSCULAR VOLUME 86.4 fl (80.0-96.0); MONO # 0.5 10^3/uL (0.0-0.8); MONO % 7.3 % (2.0-8.0); NEUTROPHILS # 6.1 10^3/uL (1.5-8.5); NEUTROPHILS % 85.7 % (36.0-66.0); PLATELET COUNT, AUTOMATED 200 10^3/uL (150-450); RED BLOOD COUNT 4.25 10^6/uL (4.00-5.40); WHITE BLOOD COUNT 7.2 10^3/uL (4.0-10.0)
[2022-02-16] MEDS: COMBIVENT RESPIMAT 100-20MCG INHALER 4GM INH SCH ×3 (12:08→12:39)
[2022-02-16 12:29] LABS: ABG BASE EXCESS -0.9 (-2.0-2.0); ABG HCO3 22.8 MEQ/L (22.0-26.0); ABG O2 SATURATION 93.2 % (95.0-99.0); ABG PARTIAL PRESSURE CO2 34.6 mmHg (35.0-45.0); ABG PARTIAL PRESSURE O2 67.1 mmHg (75.0-100.0); ABG STANDARD HCO3 23.6 MEQ/L (22.0-26.0); ABG TOTAL CO2 23.9 MEQ/L (23.0-31.0); ABG pH (ARTERIAL) 7.437 UNITS (7.350-7.450)
[2022-02-16] MEDS ORDERED: AZITHROMYCIN 250MG TABLET PO ONE (13:05)
[2022-02-16] MEDS ORDERED: cefTRIAXone SOD 1 GM in D5W MINI-BAG PLUS 50 ML IV ONE (13:05)
[2022-02-16] MEDS ORDERED: FUROSEMIDE 40MG/4ML VIAL (J1940) IV ONE (15:20)
[2022-02-16] MEDS ORDERED: HOME MED LIST COMPLETE! XX SCH (15:35)
[2022-02-16] MEDS ORDERED: ALBUTEROL SULFATE 2.5 MG/0.5 ML INH NEB SOLN NEB PRN (15:50)
[2022-02-16 16:06] VITALS: O2SAT 85
[2022-02-16 18:30] VITALS: BP 139/74
[2022-02-16] MEDS ORDERED: GLUCOSE 4GM CHEW TABLET PO PRN (18:30)
[2022-02-16] MEDS ORDERED: DEXTROSE 50% 50 ML SYRINGE IV PRN (18:30)
[2022-02-16] MEDS ORDERED: GLUCAGON INJ 1MG VIAL SC PRN (18:30)
[2022-02-16 20:00] VITALS: BP 132/73
[2022-02-16] MEDS: ADVAIR HFA 230/21MCG INHALER INH SCH (20:28)
[2022-02-16] MEDS: INSULIN LISPRO (NovoLOG) PER UNIT SC SCH (21:00)
[2022-02-16] MEDS: DOXYCYCLINE HYCLATE 100MG TABLET PO SCH (22:43)
[2022-02-16] MEDS: MAGNESIUM OXIDE 400MG TAB (MAG-OX) PO SCH (22:43)
[2022-02-16] MEDS: SIMVASTATIN 10 MG TAB PO SCH (22:43)
[2022-02-16] MEDS: MONTELUKAST 10 MG TAB PO SCH (22:44)
[2022-02-16] MEDS: ACETAMINOPHEN TAB 650MG DOSE (2X325MG) PO PRN (23:45)
[2022-02-17 03:12] VITALS: BP 132/73
[2022-02-17 04:00] VITALS: BP 140/72
[2022-02-17] MEDS: LEVOTHYROXINE 50MCG TABLET (0.05MG) PO SCH (06:33)
[2022-02-17] MEDS: DOXYCYCLINE HYCLATE 100MG TABLET PO SCH ×2 (07:53→20:58)
[2022-02-17] MEDS: MAGNESIUM OXIDE 400MG TAB (MAG-OX) PO SCH ×2 (07:53→20:58)
[2022-02-17] MEDS: CYANOCOBALAMIN 500 MCG TAB PO SCH (07:53)
[2022-02-17] MEDS: ENOXAPARIN 40MG/0.4ML SYRINGE (J1650 PER 10MG) SC SCH (07:54)
[2022-02-17] MEDS: bisoproloL fumarate 5 MG TAB PO SCH (07:54)
[2022-02-17] MEDS: FUROSEMIDE 20MG/2ML VIAL (J1940) IV SCH ×2 (07:55→17:06)
[2022-02-17 08:00] LABS: HEMATOCRIT 35.3 % (36.0-47.0); HEMOGLOBIN 11.2 g/dl (12.0-15.5); MEAN CORPUSCULAR HEMOGLOBIN 27.5 pg (27.0-33.0); MEAN CORPUSCULAR HGB CONC 31.7 g/dl (32.0-36.5); MEAN CORPUSCULAR VOLUME 86.7 fl (80.0-96.0); PLATELET COUNT, AUTOMATED 208 10^3/uL (150-450); RED BLOOD COUNT 4.07 10^6/uL (4.00-5.40); WHITE BLOOD COUNT 4.1 10^3/uL (4.0-10.0)
[2022-02-17] MEDS: INSULIN LISPRO (NovoLOG) PER UNIT SC SCH ×4 (08:03→21:00)
[2022-02-17 08:44] LABS: ALBUMIN 3.2 GM/DL (3.2-5.2); ALT/SGPT 26 U/L (12-78); BILIRUBIN,TOTAL 0.5 MG/DL (0.2-1.0); BLOOD UREA NITROGEN 16 MG/DL (7-18); CALCIUM LEVEL 8.9 MG/DL (8.8-10.2); CARBON DIOXIDE LEVEL 26 MEQ/L (21-32); CHLORIDE LEVEL 105 MEQ/L (98-107); CREATININE FOR GFR 0.77 MG/DL (0.55-1.30); GLOMERULAR FILTRATION RATE > 60.0 (>45); GLUCOSE, FASTING 127 MG/DL (70-100); POTASSIUM SERUM 3.4 MEQ/L (3.5-5.1); SODIUM LEVEL 138 MEQ/L (136-145); TOTAL PROTEIN 6.4 GM/DL (6.4-8.2)
[2022-02-17] MEDS: ADVAIR HFA 230/21MCG INHALER INH SCH ×2 (08:52→19:29)
[2022-02-17] MEDS: TIOTROPIUM INHALER/CAPSULE (SPIRIVA) INH SCH (08:52)
[2022-02-17] MEDS ORDERED: cefTRIAXone SOD 1 GM in D5W MINI-BAG PLUS 50 ML IV SCH (13:00)
[2022-02-17 16:00] VITALS: BP 136/70
[2022-02-17 20:00] VITALS: BP 147/70
[2022-02-17] MEDS: SIMVASTATIN 10 MG TAB PO SCH (20:58)
[2022-02-17] MEDS: MONTELUKAST 10 MG TAB PO SCH (20:58)
[2022-02-18] MEDS: ACETAMINOPHEN TAB 650MG DOSE (2X325MG) PO PRN (00:56)
[2022-02-18 05:04] VITALS: BP 137/74
[2022-02-18] MEDS: LEVOTHYROXINE 50MCG TABLET (0.05MG) PO SCH (06:25)
[2022-02-18 07:06] LABS: HEMATOCRIT 35.3 % (36.0-47.0); HEMOGLOBIN 11.6 g/dl (12.0-15.5); MEAN CORPUSCULAR HEMOGLOBIN 28.6 pg (27.0-33.0); MEAN CORPUSCULAR HGB CONC 32.9 g/dl (32.0-36.5); MEAN CORPUSCULAR VOLUME 86.9 fl (80.0-96.0); PLATELET COUNT, AUTOMATED 239 10^3/uL (150-450); RED BLOOD COUNT 4.06 10^6/uL (4.00-5.40); WHITE BLOOD COUNT 4.9 10^3/uL (4.0-10.0)
[2022-02-18 07:37] LABS: ALBUMIN 3.3 GM/DL (3.2-5.2); ALT/SGPT 26 U/L (12-78); BILIRUBIN,TOTAL 0.4 MG/DL (0.2-1.0); BLOOD UREA NITROGEN 14 MG/DL (7-18); CALCIUM LEVEL 9.2 MG/DL (8.8-10.2); CARBON DIOXIDE LEVEL 31 MEQ/L (21-32); CHLORIDE LEVEL 104 MEQ/L (98-107); CREATININE FOR GFR 0.81 MG/DL (0.55-1.30); GLOMERULAR FILTRATION RATE > 60.0 (>45); GLUCOSE, FASTING 125 MG/DL (70-100); POTASSIUM SERUM 3.5 MEQ/L (3.5-5.1); SODIUM LEVEL 141 MEQ/L (136-145); TOTAL PROTEIN 6.4 GM/DL (6.4-8.2)
[2022-02-18] MEDS: TIOTROPIUM INHALER/CAPSULE (SPIRIVA) INH SCH (07:48)
[2022-02-18] MEDS: ADVAIR HFA 230/21MCG INHALER INH SCH (07:48)
[2022-02-18 09:03] VITALS: BP 151/72
[2022-02-18] MEDS: MAGNESIUM OXIDE 400MG TAB (MAG-OX) PO SCH (09:03)
[2022-02-18] MEDS: FUROSEMIDE 20MG/2ML VIAL (J1940) IV SCH (09:03)
[2022-02-18] MEDS: bisoproloL fumarate 5 MG TAB PO SCH (09:03)
[2022-02-18] MEDS: DOXYCYCLINE HYCLATE 100MG TABLET PO SCH (09:03)
[2022-02-18] MEDS: CYANOCOBALAMIN 500 MCG TAB PO SCH (09:03)
[2022-02-18] MEDS: INSULIN LISPRO (NovoLOG) PER UNIT SC SCH (09:04)
[2022-02-18] MEDS: ENOXAPARIN 40MG/0.4ML SYRINGE (J1650 PER 10MG) SC SCH (09:04)
[2022-02-18] MEDS ORDERED: PROB1CAP10 PO (09:49)
[2022-02-18] MEDS ORDERED: LASI20TA3 PO (09:49)
[2022-02-18] MEDS ORDERED: CEFU50TA PO (09:49)
[2022-02-18] MEDS ORDERED: DOXY-350 PO (09:49)
== END 2022-02-18 11:45 | disposition home or self-care (01) ==
LOC: M ED 09:05 → M ED INP 09:06 → ENRESERV 16:17 → M 4MAIN 18:30
PROVIDERS: ADMIT Internal Medicine; ATTEND Internal Medicine
DX: J96.01 Acute respiratory failure with hypoxia (principal); J18.9 Pneumonia, unspecified organism; R79.89 Other specified abnormal findings of blood chemistry; I10 Essential (primary) hypertension; E78.49 Other hyperlipidemia; E11.9 Type 2 diabetes mellitus without complications; E03.9 Hypothyroidism, unspecified; G47.33 Obstructive sleep apnea (adult) (pediatric); E83.42 Hypomagnesemia; D51.0 Vitamin B12 deficiency anemia due to intrinsic factor deficiency; J45.909 Unspecified asthma, uncomplicated; Z79.84 Long term (current) use of oral hypoglycemic drugs; Z79.899 Other long term (current) drug therapy; Z88.0 Allergy status to penicillin; Z88.8 Allergy status to other drugs, medicaments and biological substances
CPT/HCPCS: 36415; 71275; 80047; 80053; 82803; 83605; 83880; 84145; 85025; 85027; 87040; 87070; 87077; 87205; 87486; 87581; 87633; 87798; 93005; 93306; 94640; 94760; 96365; 96366; 96372; 96375; 96376; 99284; G0378; J0696; J1650; J1815; J1940; Q9967

== ENCOUNTER → 2022-03-20 | Outpatient (REF) | payer MEDICARE ==
[~2022-03-20] MED LIST changes: +ACET-683 PO; +PROB1CAP10 PO
[2022-03-20 13:42] LABS: APPEARANCE, URINE MANUAL HAZY (CLEAR); COLOR, URINE MANUAL ORANGE (YELLOW); PROTEIN, URINE MANUAL OBSCURED mg/dL (NEGATIVE)
[2022-03-20 13:43] LABS: BILIRUBIN, URINE MANUAL OBSCURED (NEGATIVE); BLOOD URINE MANUAL OBSCURED (NEGATIVE); GLUCOSE, URINE (UA) MANUAL 1+(100 MG/DL) mg/dL (NEGATIVE); KETONE, URINE MANUAL OBSCURED mg/dL (NEGATIVE); LEUKOCYTE ESTERASE, URINE MAN OBSCURED (NEGATIVE); NITRITE, URINE MANUAL OBSCURED (NEGATIVE); UROBILINOGEN, URINE MANUAL OBSCURED mg/dl (NORMAL)
[2022-03-20 14:00] LABS: SQUAMOUS EPITHELIAL CELL URINE SMALL AMOUNT /hpf (SMALL AMT)
[2022-03-20 14:01] LABS: CALCIUM OXALATE CRYSTALS,URINE MOD AMOUNT /hpf
== END ==
LOC: M SMT 13:01
PROVIDERS: ATTEND Urology
DX: N39.0 Urinary tract infection, site not specified (principal)

== ENCOUNTER → 2022-04-05 | Outpatient (CLI) | payer MEDICARE | LOC: M WHC 13:34 | PROVIDERS: ATTEND Family Medicine | DX: Z12.31 Encounter for screening mammogram for malignant neoplasm of breast (principal) ==

== ENCOUNTER → 2022-05-03 | Outpatient (CLI) | payer MEDICARE ==
[~2022-05-03] MED LIST changes: +CITRTAB18 PO; -DOXY-350 PO; +DOXY-444 PO
== END ==
LOC: M RAD 10:13
PROVIDERS: ATTEND Internal Medicine Pulmonary Disease
DX: R91.8 Other nonspecific abnormal finding of lung field (principal); R59.0 Localized enlarged lymph nodes; N20.0 Calculus of kidney

== ENCOUNTER → 2022-05-04 | Outpatient (CLI) | payer MEDICARE | LOC: M LABSMTC 11:10 | PROVIDERS: ATTEND Anesthesiology | DX: Z01.812 Encounter for preprocedural laboratory examination (principal); Z11.52 Encounter for screening for COVID-19 ==

== ENCOUNTER 2022-05-09 06:48 | Day surgery (SDC) | payer MEDICARE ==
[~2022-05-09] VITALS: Ht 154.9 cm; Wt 93.0 kg
[~2022-05-09 06:48] MED LIST changes: +NS 1,000 ML IV ONE
[2022-05-09] MEDS ORDERED: propofoL 200 MG/20 ML VIAL As Ordered ONE ×2 (07:25→07:45)
[2022-05-09] MEDS ORDERED: LIDOCAINE 2% MDV 20ML VIAL As Ordered ONE (07:25)
[2022-05-09 08:10] VITALS: BP 145/67
== END 2022-05-09 08:23 | disposition home or self-care (01) ==
LOC: M OPP 06:48
PROVIDERS: ATTEND Internal Medicine Gastroenterology
DX: Z86.010 Personal history of colon polyps (principal); D12.6 Benign neoplasm of colon, unspecified; K64.8 Other hemorrhoids; Z79.02 Long term (current) use of antithrombotics/antiplatelets; Z79.51 Long term (current) use of inhaled steroids; Z79.52 Long term (current) use of systemic steroids; Z79.899 Other long term (current) drug therapy; Z88.1 Allergy status to other antibiotic agents; Z88.2 Allergy status to sulfonamides; Z88.8 Allergy status to other drugs, medicaments and biological substances; E11.9 Type 2 diabetes mellitus without complications; G47.30 Sleep apnea, unspecified; Z99.89 Dependence on other enabling machines and devices; I10 Essential (primary) hypertension; E78.00 Pure hypercholesterolemia, unspecified; E03.9 Hypothyroidism, unspecified; J45.909 Unspecified asthma, uncomplicated; Z98.84 Bariatric surgery status; Z87.442 Personal history of urinary calculi; Z94.9 Transplanted organ and tissue status, unspecified

== ENCOUNTER 2023-04-08 00:01 | Emergency (ER) | payer MEDICARE ==
[~2023-04-08] VITALS: Ht 154.9 cm; Wt 97.7 kg
[~2023-04-08 00:01] MED LIST changes: -CEFD300C41 PO; +CEFD300C42 PO; +MONT-5 PO; -NS 1,000 ML IV ONE; -SING10TA32 PO
[2023-04-08 00:02] VITALS: TEMP 97
[2023-04-08] MEDS ORDERED: KETOROLAC 30 MG/ML 1ML VIAL IV ONE (00:55)
[2023-04-08] MEDS ORDERED: NS 1,000 ML IV ONE (00:55)
[2023-04-08] MEDS ORDERED: ONDANSETRON 4MG 2ML VIAL IV ONE (00:55)
[2023-04-08 01:40] LABS: BASO % 0.4 % (0.0-1.0); EOS # 0.2 10^3/uL (0.0-0.5); EOS % 3.1 % (0.0-3.0); HEMATOCRIT 38.1 % (36.0-47.0); HEMOGLOBIN 12.5 g/dl (12.0-15.5); LYMPH # 0.9 10^3/uL (1.5-5.0); MEAN CORPUSCULAR HEMOGLOBIN 28.7 pg (27.0-33.0); MEAN CORPUSCULAR HGB CONC 32.8 g/dl (32.0-36.5); MEAN CORPUSCULAR VOLUME 87.6 fl (80.0-96.0); MONO # 0.7 10^3/uL (0.0-0.8); MONO % 9.8 % (2.0-8.0); NEUTROPHILS % 73.4 % (36.0-66.0); PLATELET COUNT, AUTOMATED 188 10^3/uL (150-450); RED BLOOD COUNT 4.35 10^6/uL (4.00-5.40); WHITE BLOOD COUNT 6.8 10^3/uL (4.0-10.0)
[2023-04-08 02:09] LABS: ALBUMIN 4.1 G/DL (3.2-5.2); BILIRUBIN,DIRECT 0.1 MG/DL (<0.4); BILIRUBIN,TOTAL 0.4 MG/DL (0.3-1.2)
[2023-04-08] MEDS ORDERED: CIPROFLOXACIN 500MG TABLET PO ONE (02:10)
[2023-04-08] MEDS ORDERED: KETO10TAB PO (02:10)
[2023-04-08] MEDS ORDERED: FLOM0.4C39 PO (02:10)
[2023-04-08] MEDS ORDERED: CIPR-249 PO (02:10)
[2023-04-08] MEDS ORDERED: TAMSULOSIN 0.4 MG CAP PO ONE (02:10)
[2023-04-08] MEDS ORDERED: ONDA4TAB6 PO (02:13)
[2023-04-08 02:36] VITALS: BP 153/77; O2SAT 96
== END 2023-04-08 02:36 | disposition home or self-care (01) ==
LOC: M ED 00:01
DX: N39.0 Urinary tract infection, site not specified (principal); N20.1 Calculus of ureter; E11.9 Type 2 diabetes mellitus without complications; J45.909 Unspecified asthma, uncomplicated; G47.33 Obstructive sleep apnea (adult) (pediatric); I10 Essential (primary) hypertension; E78.5 Hyperlipidemia, unspecified; Z87.442 Personal history of urinary calculi; Z98.84 Bariatric surgery status; Z88.2 Allergy status to sulfonamides; Z88.5 Allergy status to narcotic agent; Z88.8 Allergy status to other drugs, medicaments and biological substances; Z79.1 Long term (current) use of non-steroidal anti-inflammatories (NSAID); Z79.83 Long term (current) use of bisphosphonates; Z79.899 Other long term (current) drug therapy
CPT/HCPCS: 74176; 80047; 80076; 81001; 83690; 85025; 87086; 96361; 96374; 96375; 99284; J1885; J2405

== ENCOUNTER → 2023-04-23 | Outpatient (CLI) | payer MEDICARE ==
[~2023-04-23] MED LIST changes: +CIPR-249 PO; +FLOM0.4C39 PO; +FURO20TA2 PO; +GABA-1171 PO; +KETO10TAB PO; +ONDA4TAB6 PO; +OXYB5TAB11 PO; +PROA1AER2 INH
[2023-04-23 10:06] LABS: HEMATOCRIT 38.2 % (36.0-47.0); HEMOGLOBIN 12.4 g/dl (12.0-15.5); MEAN CORPUSCULAR HEMOGLOBIN 28.5 pg (27.0-33.0); MEAN CORPUSCULAR HGB CONC 32.5 g/dl (32.0-36.5); MEAN CORPUSCULAR VOLUME 87.8 fl (80.0-96.0); PLATELET COUNT, AUTOMATED 222 10^3/uL (150-450); RED BLOOD COUNT 4.35 10^6/uL (4.00-5.40); WHITE BLOOD COUNT 5.9 10^3/uL (4.0-10.0)
[2023-04-23 10:15] LABS: APPEARANCE, URINE CLOUDY (CLEAR); BACTERIA, URINE AUTO 1+ (NEGATIVE); BILIRUBIN, URINE AUTO NEGATIVE (NEGATIVE); BLOOD, URINE BLOOD 1+ (NEGATIVE); COLOR, URINE YELLOW (YELLOW); GLUCOSE, URINE (UA) AUTO NEGATIVE (NEGATIVE); KETONE, URINE AUTO NEGATIVE (NEGATIVE); LEUKOCYTE ESTERASE, URINE AUTO 3+ (NEGATIVE); MUCUS, URINE SMALL (NEGATIVE); NITRITE, URINE AUTO NEGATIVE (NEGATIVE); PROTEIN, URINE AUTO 2+ mg/dL (NEGATIVE); RBC, URINE AUTO 22 /HPF (0-3); SPECIFIC GRAVITY URINE AUTO 1.014 (1.002-1.035); SQUAMOUS EPITHELIAL CELL UR AU 2 /HPF (0-6); UROBILINOGEN, URINE AUTO 0.2 mg/dL (0.0-2.0); WBC, URINE AUTO TNTC /HPF (0-3)
[2023-04-23 10:20] LABS: BLOOD UREA NITROGEN 16 MG/DL (9-23); CALCIUM LEVEL 9.3 MG/DL (8.3-10.6); CARBON DIOXIDE LEVEL 28 MMOL/L (20-31); CHLORIDE LEVEL 104 MMOL/L (98-107); CREATININE FOR GFR 0.73 MG/DL (0.55-1.30); GLOMERULAR FILTRATION RATE > 60.0 (>45); GLUCOSE, FASTING 129 MG/DL (74-106); POTASSIUM SERUM 4.3 MMOL/L (3.5-5.1); SODIUM LEVEL 141 MMOL/L (136-145)
== END ==
LOC: M RAD 09:04
PROVIDERS: ATTEND Nurse Practitioner Family
DX: Z01.818 Encounter for other preprocedural examination (principal); I49.9 Cardiac arrhythmia, unspecified; Z79.899 Other long term (current) drug therapy

== ENCOUNTER 2023-05-02 06:07 | Day surgery (SDC) | payer MEDICARE ==
[~2023-05-02] VITALS: Ht 154.9 cm; Wt 97.9 kg
[~2023-05-02 06:07] MED LIST changes: -OXYB5TAB11 PO
[2023-05-02] MEDS ORDERED: ONDANSETRON 4MG 2ML VIAL As Ordered ONE (07:05)
[2023-05-02] MEDS ORDERED: LIDOCAINE 2% 100MG/5ML SDV (FOR ANES.) As Ordered ONE (07:06)
[2023-05-02] MEDS ORDERED: propofoL 200 MG/20 ML VIAL As Ordered ONE (07:06)
[2023-05-02] MEDS ORDERED: fentaNYL 100 MCG/2 ML INJECTION As Ordered ONE (07:07)
[2023-05-02] MEDS ORDERED: MIDAZOLAM INJ 2MG/2ML VIAL As Ordered ONE (07:09)
[2023-05-02] MEDS ORDERED: ceFAZolin SOD 2 GM in IV 1 EA IV ONE (07:20)
[2023-05-02] MEDS ORDERED: LR 1,000 ML IV SCH ×2 (07:20→09:20)
[2023-05-02] MEDS ORDERED: ISOVUE-300 61% 100ML VIAL As Ordered ONE (07:27)
[2023-05-02] MEDS ORDERED: ACETAMINOPHEN 1000MG 100ML IV BAG As Ordered ONE (07:51)
[2023-05-02] MEDS ORDERED: ONDANSETRON 4MG 2ML VIAL IV PRN (09:20)
[2023-05-02] MEDS ORDERED: PERCOCET 5MG/325MG TAB PO PRN (09:45)
[2023-05-02] MEDS ORDERED: oxyBUTYnin 5 MG TAB PO PRN (09:45)
[2023-05-02] MEDS ORDERED: OXYB5TAB11 PO (09:51)
[2023-05-02] MEDS: oxyCODONE 5MG TAB PO PRN ×2 (09:51→10:39)
[2023-05-02] MEDS ORDERED: INSULIN LISPRO (NovoLOG) PER UNIT SC PRN (09:55)
[2023-05-02] MEDS: fentaNYL 100 MCG/2 ML INJECTION IV PRN ×2 (09:59→10:07)
[2023-05-02 13:30] VITALS: BP 140/70; TEMP 96.7; O2SAT 92
== END 2023-05-02 13:35 | disposition home or self-care (01) ==
LOC: M SDC 06:07
PROVIDERS: ATTEND Urology
DX: N20.2 Calculus of kidney with calculus of ureter (principal); I10 Essential (primary) hypertension; E03.9 Hypothyroidism, unspecified; E78.5 Hyperlipidemia, unspecified; E11.9 Type 2 diabetes mellitus without complications; J45.909 Unspecified asthma, uncomplicated; G47.33 Obstructive sleep apnea (adult) (pediatric); L40.9 Psoriasis, unspecified; Z79.899 Other long term (current) drug therapy; Z79.84 Long term (current) use of oral hypoglycemic drugs; Z79.51 Long term (current) use of inhaled steroids; Z88.2 Allergy status to sulfonamides; Z88.8 Allergy status to other drugs, medicaments and biological substances
CPT/HCPCS: 52356; 76000; 82365; C1769; C1894; C2617; J0131; J0690; J1100; J1815; J2250; J2405; J3010; Q9967

== ENCOUNTER → 2023-05-11 | Outpatient (REF) | payer MEDICARE ==
[~2023-05-11] MED LIST changes: +OXYB5TAB11 PO
[2023-05-11 16:18] LABS: APPEARANCE, URINE CLOUDY (CLEAR); BACTERIA, URINE AUTO 1+ (NEGATIVE); BILIRUBIN, URINE AUTO NEGATIVE (NEGATIVE); BLOOD, URINE BLOOD 3+ (NEGATIVE); COLOR, URINE YELLOW (YELLOW); GLUCOSE, URINE (UA) AUTO NEGATIVE (NEGATIVE); KETONE, URINE AUTO NEGATIVE (NEGATIVE); LEUKOCYTE ESTERASE, URINE AUTO 3+ (NEGATIVE); MUCUS, URINE SMALL (NEGATIVE); NITRITE, URINE AUTO NEGATIVE (NEGATIVE); PROTEIN, URINE AUTO 2+ mg/dL (NEGATIVE); RBC, URINE AUTO TNTC /HPF (0-3); SPECIFIC GRAVITY URINE AUTO 1.015 (1.002-1.035); SQUAMOUS EPITHELIAL CELL UR AU 2 /HPF (0-6); TRANSITIONAL EPITHELIAL AUTO 2 /HPF; UROBILINOGEN, URINE AUTO 0.2 mg/dL (0.0-2.0); WBC, URINE AUTO TNTC /HPF (0-3)
== END ==
LOC: M SMT 15:27
PROVIDERS: ATTEND Urology
DX: N39.0 Urinary tract infection, site not specified (principal)

== ENCOUNTER → 2023-07-02 | Outpatient (CLI) | payer MEDICARE ==
[~2023-07-02] MED LIST changes: +CEFD1CAP9 PO; -CEFD300C42 PO
== END ==
LOC: M PLAIMG 14:15
PROVIDERS: ATTEND Internal Medicine Pulmonary Disease
DX: R91.8 Other nonspecific abnormal finding of lung field (principal); I70.0 Atherosclerosis of aorta; I25.10 Atherosclerotic heart disease of native coronary artery without angina pectoris; Z98.84 Bariatric surgery status; K44.9 Diaphragmatic hernia without obstruction or gangrene

== ENCOUNTER → 2023-12-20 | Outpatient (CLI) | payer MEDICARE ==
[~2023-12-20] MED LIST changes: -AZEL0.055 NARES; +AZEL1SPR4 NARES; +DOXY-440 PO; -DOXY-444 PO; +ONDA-282 PO; -ONDA4TAB6 PO; -OXYB5TAB11 PO; +OXYB5TAB14 PO
== END ==
LOC: M RAD 08:41
PROVIDERS: ATTEND Urology
DX: N20.0 Calculus of kidney (principal)

== ENCOUNTER → 2023-12-21 | Outpatient (REF) | payer MEDICARE ==
[2023-12-21 13:12] LABS: APPEARANCE, URINE CLOUDY (CLEAR); BACTERIA, URINE AUTO NEGATIVE (NEGATIVE); BILIRUBIN, URINE AUTO NEGATIVE (NEGATIVE); BLOOD, URINE BLOOD NEGATIVE (NEGATIVE); COLOR, URINE AMBER (YELLOW); GLUCOSE, URINE (UA) AUTO NEGATIVE (NEGATIVE); KETONE, URINE AUTO NEGATIVE (NEGATIVE); LEUKOCYTE ESTERASE, URINE AUTO 3+ (NEGATIVE); MUCUS, URINE SMALL (NEGATIVE); NITRITE, URINE AUTO NEGATIVE (NEGATIVE); PROTEIN, URINE AUTO 1+ mg/dL (NEGATIVE); RBC, URINE AUTO 20 /HPF (0-3); SQUAMOUS EPITHELIAL CELL UR AU 1 /HPF (0-6); UROBILINOGEN, URINE AUTO 0.2 mg/dL (0.0-2.0); WBC, URINE AUTO TNTC /HPF (0-3)
== END ==
LOC: M SMT 12:48
PROVIDERS: ATTEND Urology
DX: N39.0 Urinary tract infection, site not specified (principal)

== ENCOUNTER 2024-03-25 16:33 | Emergency (ER) | payer MEDICARE ==
[~2024-03-25] VITALS: Ht 154.9 cm; Wt 92.0 kg
[2024-03-25] MEDS: ACETAMINOPHEN 500 MG TAB PO ONE (17:16)
[2024-03-25 17:59] LABS: BASO % 0.4 % (0.0-1.0); EOS # 0.1 10^3/uL (0.0-0.5); HEMATOCRIT 40.7 % (36.0-47.0); HEMOGLOBIN 13.1 g/dl (12.0-15.5); LYMPH # 0.8 10^3/uL (1.5-5.0); LYMPH % 7.2 % (24.0-44.0); MEAN CORPUSCULAR HGB CONC 32.2 g/dl (32.0-36.5); MONO # 1.1 10^3/uL (0.0-0.8); MONO % 9.7 % (2.0-8.0); NEUTROPHILS # 8.8 10^3/uL (1.5-8.5); NEUTROPHILS % 81.1 % (36.0-66.0); PLATELET COUNT, AUTOMATED 241 10^3/uL (150-450); RED BLOOD COUNT 4.68 10^6/uL (4.00-5.40); WHITE BLOOD COUNT 10.8 10^3/uL (4.0-10.0)
[2024-03-25 18:19] LABS: ALBUMIN 3.8 G/DL (3.2-5.2); ALKALINE PHOSPHATASE 92 U/L (46-116); ALT/SGPT 17 U/L (7.0-40); AST/SGOT 10 U/L (<34); BILIRUBIN,DIRECT 0.2 MG/DL (<0.4); BILIRUBIN,TOTAL 0.5 MG/DL (0.3-1.2); BLOOD UREA NITROGEN 13 MG/DL (9-23); CALCIUM LEVEL 9.6 MG/DL (8.3-10.6); CARBON DIOXIDE LEVEL 28 MMOL/L (20-31); CHLORIDE LEVEL 105 MMOL/L (98-107); CREATININE FOR GFR 0.75 MG/DL (0.55-1.30); GLOMERULAR FILTRATION RATE > 60.0 (>45); GLUCOSE, FASTING 144 MG/DL (74-106); POTASSIUM SERUM 4.1 MMOL/L (3.5-5.1); SODIUM LEVEL 138 MMOL/L (136-145); TOTAL PROTEIN 7.3 G/DL (5.7-8.2)
[2024-03-25] MEDS: IBUPROFEN 600MG TAB PO ONE (18:26)
[2024-03-25] MEDS ORDERED: ISOVUE-370 76% 100ML VIAL As Ordered ONE (18:54)
[2024-03-25 19:16] LABS: PROCALCITONIN 0.17 ng/ml
[2024-03-25 19:45] VITALS: TEMP 99
[2024-03-25] MEDS: CIPROFLOXACIN 400 MG in IV 1 EA IV ONE (21:52)
[2024-03-25] MEDS ORDERED: CIPR500T39 PO (21:55)
[2024-03-25 22:00] VITALS: BP 108/60; O2SAT 95
== END 2024-03-25 22:37 | disposition home or self-care (01) ==
LOC: M ED 16:33
DX: N10 Acute pyelonephritis (principal); N20.0 Calculus of kidney; I10 Essential (primary) hypertension; E03.9 Hypothyroidism, unspecified; Z88.2 Allergy status to sulfonamides; Z88.8 Allergy status to other drugs, medicaments and biological substances; Z79.1 Long term (current) use of non-steroidal anti-inflammatories (NSAID); Z79.51 Long term (current) use of inhaled steroids; Z79.84 Long term (current) use of oral hypoglycemic drugs; Z79.899 Other long term (current) drug therapy
CPT/HCPCS: 74177; 80048; 80076; 81001; 83605; 84145; 85025; 87040; 87086; 87486; 87581; 87633; 87798; 96365; 99284; J0744; Q9967

== ENCOUNTER → 2024-03-31 | Outpatient (REF) | payer MEDICARE ==
[~2024-03-31] MED LIST changes: +CIPR500T39 PO
[2024-04-01 13:49] LABS: APPEARANCE, URINE HAZY (CLEAR); BACTERIA, URINE AUTO NEGATIVE (NEGATIVE); BILIRUBIN, URINE AUTO NEGATIVE (NEGATIVE); BLOOD, URINE BLOOD NEGATIVE (NEGATIVE); COLOR, URINE YELLOW (YELLOW); GLUCOSE, URINE (UA) AUTO NEGATIVE (NEGATIVE); KETONE, URINE AUTO NEGATIVE (NEGATIVE); LEUKOCYTE ESTERASE, URINE AUTO 1+ (NEGATIVE); MUCUS, URINE SMALL (NEGATIVE); NITRITE, URINE AUTO NEGATIVE (NEGATIVE); PROTEIN, URINE AUTO NEGATIVE (NEGATIVE); RBC, URINE AUTO 2 /HPF (0-3); SPECIFIC GRAVITY URINE AUTO 1.015 (1.002-1.035); SQUAMOUS EPITHELIAL CELL UR AU 0 /HPF (0-6); UROBILINOGEN, URINE AUTO 0.2 mg/dL (0.0-2.0); WBC, URINE AUTO 50 /HPF (0-3)
== END ==
LOC: M SMT 12:53
PROVIDERS: ATTEND Urology
DX: N39.0 Urinary tract infection, site not specified (principal)

== ENCOUNTER → 2024-04-25 | Outpatient (CLI) | payer MEDICARE | LOC: M WHC 07:29 | PROVIDERS: ATTEND Family Medicine | DX: Z12.31 Encounter for screening mammogram for malignant neoplasm of breast (principal); R92.313 Mammographic fatty tissue density, bilateral breasts ==

== ENCOUNTER → 2024-06-27 | Outpatient (CLI) | payer MEDICARE | LOC: M RAD 11:00 | PROVIDERS: ATTEND Urology | DX: N20.0 Calculus of kidney (principal) ==

== ENCOUNTER → 2024-07-16 | Outpatient (REF) | payer MEDICARE | LOC: M LAB REF 13:04 | PROVIDERS: ATTEND Physician Assistant | DX: R30.0 Dysuria (principal) ==

== ENCOUNTER 2025-02-22 13:48 | Inpatient (IN) | payer MEDICARE ==
[~2025-02-22] VITALS: Ht 154.9 cm; Wt 94.0 kg
[~2025-02-22 13:48] MED LIST changes: -FLOM0.4C39 PO; +SLOW1TAB3 PO; -SLOWTAB2 PO; +TAMS-18 PO
[2025-02-22 14:36] LABS: VENOUS BASE EXCESS -0.3 (-2.0-2.0); VENOUS HCO3 22.3 MMOL/L (23.0-27.0); VENOUS O2 SATURATION 93.4 % (60.0-80.0); VENOUS PARTIAL PRESSURE CO2 30.8 mmHg (38.0-50.0); VENOUS PARTIAL PRESSURE O2 65.7 mmHg (30.0-50.0); VENOUS PH 7.478 UNITS (7.330-7.430); VENOUS STANDARD HCO3 24.2 MMOL/L; VENOUS TOTAL CO2 23.3 MMOL/L (24.0-28.0)
[2025-02-22 14:39] LABS: BASO # 0.0 10^3/uL (0.0-0.2); BASO % 0.3 % (0.0-1.0); EOS # 0.1 10^3/uL (0.0-0.5); EOS % 0.7 % (0.0-3.0); LYMPH # 0.7 10^3/uL (1.5-5.0); LYMPH % 7.8 % (24.0-44.0); MONO # 0.3 10^3/uL (0.0-0.8); MONO % 3.6 % (2.0-8.0); NEUTROPHILS # 8.0 10^3/uL (1.5-8.5); NEUTROPHILS % 86.9 % (36.0-66.0); PLATELET COUNT, AUTOMATED 184 10^3/uL (150-450)
[2025-02-22] MEDS: ACETAMINOPHEN 500 MG TAB PO ONE (15:10)
[2025-02-22 15:12] LABS: ALT/SGPT 25 U/L (7.0-40); AST/SGOT 24 U/L (<34); C REACTIVE PROTEIN QUANTITATIV 8.29 MG/DL (<1.0); CALCIUM LEVEL 9.0 MG/DL (8.3-10.6); CARBON DIOXIDE LEVEL 22 MMOL/L (20-31); CHLORIDE LEVEL 105 MMOL/L (98-107); CREATININE FOR GFR 0.74 MG/DL (0.55-1.30); GLOMERULAR FILTRATION RATE 87.5 (>45); POTASSIUM SERUM 4.8 MMOL/L (3.5-5.1); SODIUM LEVEL 141 MMOL/L (136-145)
[2025-02-22 15:21] LABS: INR 1.05
[2025-02-22] MEDS ORDERED: ISOVUE-370 76% 100 ML VIAL As Ordered ONE (15:23)
[2025-02-22 15:43] LABS: APPEARANCE, URINE HAZY (CLEAR); BACTERIA, URINE AUTO NEGATIVE (NEGATIVE); BILIRUBIN, URINE AUTO NEGATIVE (NEGATIVE); BLOOD, URINE BLOOD 2+ (NEGATIVE); GLUCOSE, URINE (UA) AUTO NEGATIVE (NEGATIVE); KETONE, URINE AUTO NEGATIVE (NEGATIVE); LEUKOCYTE ESTERASE, URINE AUTO 2+ (NEGATIVE); NITRITE, URINE AUTO NEGATIVE (NEGATIVE); PROTEIN, URINE AUTO 3+ mg/dL (NEGATIVE); RBC, URINE AUTO 155 /HPF (0-3); SPECIFIC GRAVITY URINE AUTO 1.011 (1.002-1.035); SQUAMOUS EPITHELIAL CELL UR AU 1 /HPF (0-6); UROBILINOGEN, URINE AUTO 0.2 mg/dL (0.0-2.0); WBC, URINE AUTO TNTC /HPF (0-3)
[2025-02-22] MEDS: CEFEPIME HCL 2 GM in DEXTROSE 5% (D5W) ADV/MINI-BAG 50 ML IV ONE (16:03)
[2025-02-22] MEDS ORDERED: IBUPROFEN 600 MG TAB PO ONE (17:30)
[2025-02-22] MEDS ORDERED: GLUCAGON INJ 1 MG VIAL SC PRN (18:15)
[2025-02-22] MEDS ORDERED: DEXTROSE 50% 50 ML SYRINGE IV PRN (18:15)
[2025-02-22] MEDS ORDERED: GLUCOSE 4 GM CHEW PO PRN (18:15)
[2025-02-22] MEDS: NS (Normal Saline) 0.9% 1,000 ML IV ONE (18:19)
[2025-02-22] MEDS: KETOROLAC 30 MG/ML 1 ML VIAL IV ONE (18:20)
[2025-02-22] MEDS ORDERED: OXYB10TA23 PO (18:28)
[2025-02-22] MEDS ORDERED: CETI-24 PO (18:28)
[2025-02-22] MEDS ORDERED: VENTAER INH (18:28)
[2025-02-22] MEDS ORDERED: HOME MED LIST COMPLETE! XX SCH (18:30)
[2025-02-22] MEDS: IPRATROPIUM 0.5 MG/ALBUTEROL 2.5 MG INH SOL UD 3 ML NEB SCH (19:11)
[2025-02-22 20:00] VITALS: BP 127/68; TEMP 97.6; O2SAT 95
[2025-02-22 21:00] VITALS: BP 127/68; TEMP 98; O2SAT 95
[2025-02-22] MEDS: INSULIN LISPRO (NovoLOG) PER UNIT SC SCH (21:00)
[2025-02-22] MEDS ORDERED: AZEL1SPR3 NARES (22:33)
[2025-02-22] MEDS: ENOXAPARIN 40 MG/0.4 ML SYRINGE (J1650 PER 10MG) SC SCH (22:44)
[2025-02-22] MEDS: ACETAMINOPHEN 325 MG TAB PO PRN (22:47)
[2025-02-22 23:23] VITALS: BP 98/51; TEMP 98.2; O2SAT 95
[2025-02-23] VITALS (12 sets, daily range): BP systolic 115–155; BP diastolic 56–72; TEMP 97–102.9; O2SAT 91–98
[2025-02-23] MEDS: CEFEPIME HCL 2 GM in DEXTROSE 5% (D5W) ADV/MINI-BAG 50 ML IV SCH (01:19)
[2025-02-23 06:01] LABS: PLATELET COUNT, AUTOMATED 143 10^3/uL (150-450)
[2025-02-23 06:36] LABS: CALCIUM LEVEL 9.1 MG/DL (8.3-10.6); CARBON DIOXIDE LEVEL 23.0 MMOL/L (20-31); CHLORIDE LEVEL 107.0 MMOL/L (98-107); CREATININE FOR GFR 0.9 MG/DL (0.55-1.30); GLOMERULAR FILTRATION RATE 69.2 (>45); POTASSIUM SERUM 4.4 MMOL/L (3.5-5.1); SODIUM LEVEL 142.0 MMOL/L (136-145)
[2025-02-23] MEDS: INSULIN LISPRO (NovoLOG) PER UNIT SC SCH (07:30)
[2025-02-23] MEDS ORDERED: LEVOTHYROXINE 50 MCG TABLET (0.05 MG) PO ONE (10:55)
[2025-02-23] MEDS: CETIRIZINE 10 MG TAB PO SCH (11:44)
[2025-02-23] MEDS: LEVOTHYROXINE 50 MCG TABLET (0.05 MG) PO SCH (11:44)
[2025-02-23] MEDS: CYANOCOBALAMIN 500 MCG TAB PO SCH (11:44)
[2025-02-23] MEDS: SYMBICORT 80/4.5MCG INHALER 6GM INH SCH (12:40)
[2025-02-23] MEDS: TIOTROPIUM BROM 2.5MCG/ACTUATION 4GM INH INH SCH (12:40)
[2025-02-23] MEDS: oxyBUTYnin *XL* 5 MG TAB PO SCH (21:22)
[2025-02-23] MEDS: KETOROLAC TROMETHAMINE 10 MG TAB PO ONE (21:22)
[2025-02-23] MEDS: GABAPENTIN 100 MG CAP PO SCH (21:23)
[2025-02-23] MEDS: SIMVASTATIN 10 MG TAB PO SCH (21:23)
[2025-02-23] MEDS: MONTELUKAST 10 MG TAB PO SCH (21:23)
[2025-02-24 00:08] VITALS: BP 107/53; TEMP 97.6; O2SAT 95
[2025-02-24 04:02] VITALS: BP 151/71; TEMP 98.7; O2SAT 97
[2025-02-24 05:48] LABS: BASO # 0.0 10^3/uL (0.0-0.2); BASO % 0.2 % (0.0-1.0); EOS # 0.1 10^3/uL (0.0-0.5); EOS % 1.0 % (0.0-3.0); LYMPH # 0.3 10^3/uL (1.5-5.0); LYMPH % 5.7 % (24.0-44.0); MONO # 0.8 10^3/uL (0.0-0.8); MONO % 14.1 % (2.0-8.0); NEUTROPHILS # 4.5 10^3/uL (1.5-8.5); NEUTROPHILS % 78.7 % (36.0-66.0); PLATELET COUNT, AUTOMATED 128 10^3/uL (150-450)
[2025-02-24 06:21] LABS: CALCIUM LEVEL 8.9 MG/DL (8.3-10.6); CARBON DIOXIDE LEVEL 26.0 MMOL/L (20-31); CHLORIDE LEVEL 108.0 MMOL/L (98-107); CREATININE FOR GFR 0.82 MG/DL (0.55-1.30); GLOMERULAR FILTRATION RATE 77.4 (>45); POTASSIUM SERUM 4.3 MMOL/L (3.5-5.1); SODIUM LEVEL 141.0 MMOL/L (136-145)
[2025-02-24 06:22] LABS: C REACTIVE PROTEIN QUANTITATIV 20.76 MG/DL (<1.0)
[2025-02-24 08:21] VITALS: BP 174/74; TEMP 102.2; O2SAT 99
[2025-02-24] MEDS: IPRATROPIUM 0.5 MG/ALBUTEROL 2.5 MG INH SOL UD 3 ML NEB SCH (13:07)
[2025-02-24 16:02] VITALS: BP 144/65; TEMP 102.7; O2SAT 95
[2025-02-24 18:20] VITALS: BP 142/71; TEMP 102.2; O2SAT 94
[2025-02-24] MEDS: KETOROLAC 30 MG/ML 1 ML VIAL IV ONE (19:04)
[2025-02-24 20:43] VITALS: BP 129/61; TEMP 99.8; O2SAT 92
[2025-02-25] VITALS (7 sets, daily range): BP systolic 137–148; BP diastolic 73–89; TEMP 96.1–101.2; O2SAT 93–97
[2025-02-25 06:11] LABS: BASO # 0.0 10^3/uL (0.0-0.2); BASO % 0.5 % (0.0-1.0); EOS # 0.1 10^3/uL (0.0-0.5); EOS % 2.6 % (0.0-3.0); LYMPH # 0.4 10^3/uL (1.5-5.0); LYMPH % 11.4 % (24.0-44.0); MONO # 0.8 10^3/uL (0.0-0.8); MONO % 20.4 % (2.0-8.0); NEUTROPHILS # 2.4 10^3/uL (1.5-8.5); NEUTROPHILS % 64.6 % (36.0-66.0); PLATELET COUNT, AUTOMATED 149 10^3/uL (150-450)
[2025-02-25 06:34] LABS: CALCIUM LEVEL 8.5 MG/DL (8.3-10.6); CARBON DIOXIDE LEVEL 27.0 MMOL/L (20-31); CHLORIDE LEVEL 107.0 MMOL/L (98-107); CREATININE FOR GFR 0.87 MG/DL (0.55-1.30); GLOMERULAR FILTRATION RATE 72.1 (>45); POTASSIUM SERUM 3.9 MMOL/L (3.5-5.1); SODIUM LEVEL 142.0 MMOL/L (136-145)
[2025-02-25 07:59] LABS: C REACTIVE PROTEIN QUANTITATIV 12.45 MG/DL (<1.0)
[2025-02-25 08:06] LABS: ERYTHROCYTE SEDIMENTATION RATE 60 mm/hr (0-30)
[2025-02-25] MEDS: ceFAZolin SODIUM 2 GM in DEXTROSE 5% (D5W) ADV/MINI-BAG 50 ML IV SCH (12:54)
[2025-02-25] MEDS: IBUPROFEN 400 MG TAB PO ONE (20:21)
[2025-02-26 04:20] VITALS: BP 151/77; TEMP 97.4; O2SAT 97
[2025-02-26 06:36] LABS: BASO # 0.0 10^3/uL (0.0-0.2); BASO % 0.5 % (0.0-1.0); EOS # 0.1 10^3/uL (0.0-0.5); EOS % 3.2 % (0.0-3.0); LYMPH # 0.6 10^3/uL (1.5-5.0); LYMPH % 16.0 % (24.0-44.0); MONO # 0.6 10^3/uL (0.0-0.8); MONO % 16.8 % (2.0-8.0); NEUTROPHILS # 2.4 10^3/uL (1.5-8.5); NEUTROPHILS % 62.7 % (36.0-66.0); PLATELET COUNT, AUTOMATED 158 10^3/uL (150-450)
[2025-02-26 07:06] LABS: CALCIUM LEVEL 8.7 MG/DL (8.3-10.6); CARBON DIOXIDE LEVEL 23 MMOL/L (20-31); CHLORIDE LEVEL 110 MMOL/L (98-107); CREATININE FOR GFR 0.72 MG/DL (0.55-1.30); GLOMERULAR FILTRATION RATE > 90.0 (>45); POTASSIUM SERUM 3.8 MMOL/L (3.5-5.1); SODIUM LEVEL 146 MMOL/L (136-145)
[2025-02-26 07:32] LABS: C REACTIVE PROTEIN QUANTITATIV 5.07 MG/DL (<1.0)
[2025-02-26 07:39] LABS: ERYTHROCYTE SEDIMENTATION RATE 53 mm/hr (0-30)
[2025-02-26] MEDS: NS 0.45% 1,000 ML IV ONE (08:21)
[2025-02-26 08:26] VITALS: BP 149/69
[2025-02-26 12:00] VITALS: BP 136/71; TEMP 98.2; O2SAT 95
[2025-02-26] MEDS ORDERED: LEVO75TAB PO (13:58)
[2025-02-26] MEDS ORDERED: CEPH500C PO (14:15)
== END 2025-02-26 17:18 | disposition home or self-care (01) | DRG 872 ==
LOC: M ED 13:48 → M ED INP 18:08 → M PCU 20:39 → M MSPAV 02-24 18:14
PROVIDERS: ADMIT Internal Medicine; ATTEND General Practice
DX: A41.9 Sepsis, unspecified organism (principal); I50.32 Chronic diastolic (congestive) heart failure; N10 Acute pyelonephritis; E87.0 Hyperosmolality and hypernatremia; D61.818 Other pancytopenia; N32.81 Overactive bladder; I11.0 Hypertensive heart disease with heart failure; B96.20 Unspecified Escherichia coli [E. coli] as the cause of diseases classified elsewhere; E86.0 Dehydration; E11.42 Type 2 diabetes mellitus with diabetic polyneuropathy; E78.5 Hyperlipidemia, unspecified; E03.9 Hypothyroidism, unspecified; J45.909 Unspecified asthma, uncomplicated; J44.9 Chronic obstructive pulmonary disease, unspecified; Z90.49 Acquired absence of other specified parts of digestive tract; G47.33 Obstructive sleep apnea (adult) (pediatric); Z79.890 Hormone replacement therapy; Z79.84 Long term (current) use of oral hypoglycemic drugs; Z79.899 Other long term (current) drug therapy; Z88.2 Allergy status to sulfonamides; Z88.8 Allergy status to other drugs, medicaments and biological substances

== ENCOUNTER → 2025-04-30 | Outpatient (CLI) | payer MEDICARE ==
[~2025-04-30] MED LIST changes: +AZEL1SPR3 NARES; +CETI-24 PO; +LEVO75TAB PO; +OXYB10TA23 PO; +VENTAER INH
== END ==
LOC: M WHC 09:59
PROVIDERS: ATTEND Family Medicine
DX: Z12.31 Encounter for screening mammogram for malignant neoplasm of breast (principal); R92.313 Mammographic fatty tissue density, bilateral breasts

== ENCOUNTER → 2025-05-01 | Outpatient (REF) | payer MEDICARE | LOC: M LAB REF 12:36 | PROVIDERS: ATTEND Family Medicine | DX: J30.9 Allergic rhinitis, unspecified (principal) ==